=== PATIENT | female | born 1950 | race African-American/Black ===

== ENCOUNTER → 2016-10-10 | Outpatient (CLI) | payer MEDICARE, OTHER ==
[2016-10-10 11:47] LABS: ABSOLUTE BASOPHILS # (AUTO) 0.1 10^3/uL (0.0-0.2); ABSOLUTE EOSINOPHILS # (AUTO) 0.2 10^3/uL (0.0-0.6); ABSOLUTE LYMPHOCYTES (AUTO) 2.8 10^3/uL (0.5-4.7); ABSOLUTE MONOCYTES (AUTO) 0.7 10^3/uL (0.1-1.4); ABSOLUTE NEUT (AUTO) 3.4 10^3/uL (1.7-8.2); BASOPHILS % (AUTO) 0.8 % (0-2); EOSINOPHILS % (AUTO) 3.3 % (0-6); HEMATOCRIT 38.3 % (36.0-47.0); HEMOGLOBIN 12.6 g/dL (12.0-15.5); HGB HCT DIFFERENCE -0.5; LYMPHOCYTES % (AUTO) 38.9 % (13-45); MEAN CORPUSCULAR VOLUME 88 fl (80-97); MONOCYTES % (AUTO) 9.9 % (3-13); RED BLOOD COUNT 4.35 10^6/uL (3.72-5.28); RED CELL DISTRIBUTION WIDTH 15.5 % (11.5-14.0); SEGMENTED NEUTROPHILS % (AUTO) 47.1 % (42-78); WHITE BLOOD COUNT 7.2 10^3/uL (4.0-10.5)
[2016-10-10 12:21] LABS: ANION GAP 10 (5-19); BLOOD UREA NITROGEN 17 mg/dL (7-20); C-REACTIVE PROTEIN 5.7 mg/L (<10.0); CALCIUM 10.5 mg/dL (8.4-10.2); CARBON DIOXIDE 28 mmol/L (22-30); CHLORIDE 104 mmol/L (98-107); CREATININE RESULT 0.98 mg/dL (0.52-1.25); GLUCOSE 99 mg/dL (75-110); POTASSIUM 4.6 mmol/L (3.6-5.0); SODIUM 142.4 mmol/L (137-145)
[2016-10-10 12:22] LABS: ERYTHROCYTE SEDIMENTATION RATE 30 mm/hr (0-30)
== END ==
LOC: OD 10:30
PROVIDERS: ATTEND Orthopaedic Surgery
DX: T84.59XD Infection and inflammatory reaction due to other internal joint prosthesis, subsequent encounter (principal)
CPT/HCPCS: 36415; 80048; 85025; 85652; 86140

== ENCOUNTER → 2016-12-24 | Outpatient (CLI) | payer MEDICARE, OTHER ==
--- NOTE | 2016-12-24 11:41 | WOMENS IMAGING REPORT ---
EXAM DESCRIPTION: BILAT SCREENING MAMMO W/CAD COMPLETED DATE/TIME: 12/24/2016 11:24 am REASON FOR STUDY: Z12.31, ROUTINE SCREENING MAMMO Z12.31 ENCNTR SCREEN MAMMOGRAM FOR MALIGNANT NEOP LASM OF JOSE DANIEL COMPARISON: Multiple since 2011 TECHNIQUE: Standard craniocaudal and mediolateral oblique views of each breast recorded using Terranovaa l acquisition. LIMITATIONS: None. FINDINGS: No masses, calcifications or architectural distortion. No areas of suspicion. Read with the assistance of CAD. .[facility] - R2 Cenova Version 1.3 .[facility] - R2 Cenova Version 1.3 .[facility] - R2 Cenova Version 2.4 .[facility] [place] - R2 Cenova Version 2.4 .REPLACED BY [facility] - R2 Electroneurodiagnostic Technologist Version 9.2 IMPRESSION: NORMAL MAMMOGRAM. BIRADS 1. BREAST DENSITY: b. There are scattered areas of fibroglandular density. BIRAD: 1 NEGATIVE RECOMMENDATION: ROUTINE SCREENING COMMENT: The patient has been notified of the results by letter per SA requirements. Additional no tification policies are in place for contacting patient with suspicious or incomplete findings. Quality ID #[id number]: The [employer] recommends an annual screening mammogram for women aged 40 years or over. This facility utilizes a reminder system to ensure that all patients receive reminder letters, and/or direct phone calls for appointments. This includes reminders for routine scr eening mammograms, diagnostic mammograms, or other Breast Imaging Interventions when appropriate. Th is patient will be placed in the appropriate reminder system. The [employer] (ACR) has developed recommendations for screening MRI of the breast s in certain patient populations, to be used in conjunction with mammography. Breast MRI surveillanc e may be appropriate for women with more than 20% lifetime risk of developing breast cancer as deter mined by genetic testing, significant family history of the disease, or history of mantle radiation f or Hodgkins Disease. ACR Practice Guidelines 2008. TECHNICAL DOCUMENTATION: FINDING NUMBER: (1) ASSESSMENT: (1) JOB ID: [id number] [employer]- All Rights Reserved
== END ==
LOC: WI 10:50
PROVIDERS: ATTEND Internal Medicine
DX: Z12.31 Encounter for screening mammogram for malignant neoplasm of breast (principal)
CPT/HCPCS: 77067; G0202

== ENCOUNTER 2017-02-09 19:37 | Emergency (ER) | payer MEDICARE, OTHER ==
[2017-02-09] MEDS ORDERED: ONDANSETRON 4 MG TAB.RAPDIS PO ONE (20:52)
[2017-02-09] MEDS ORDERED: HYDROCODONE/ACETAMINOPHEN 5-325 MG TABLET PO ONE (20:52)
--- NOTE | 2017-02-09 20:53 | ER Document Report ---
ED General - General Chief Complaint: Blood Pressure Problem Stated Complaint: POSSIBLE BLOOD PRESSURE ISSUES Time Seen by Provider: 02/09/17 20:42 Notes: Patient is a 66-year-old female that comes in for chief complaint of an elevated blood pressure reading of 200/94. Patient states she felt nauseated and felt worn out, she still complains of feeling nauseated, she admits that she did not take her blood pressure medication this morning because of it, she did take it this afternoon and now her blood pressure is in the 140s systolic. She denies chest pain, headache, dizziness. she states her left knee hurts, however this is chronic, she is postop and follows with orthopedics, she is on chronic Levaquin for this (states she will be until this May). TRAVEL OUTSIDE OF THE [place] IN LAST 30 DAYS: No - Related Data Allergies/Adverse Reactions: aspirin [Aspirin] Allergy (Intermediate, Verified 02/09/17 20:07) Rash codeine [Codeine] Adverse Reaction (Severe, Verified 02/09/17 20:07) Severe abdominal pain Past Medical History - General Information source: Patient - Social History Smoking Status: Never Smoker Frequency of alcohol use: None Drug Abuse: None Lives with: Family Family History: None - Past Medical History Cardiac Medical History: Reports: Hx Hypercholesterolemia, Hx Hypertension Denies: Hx Atrial Fibrillation, Hx Congestive Heart Failure, Hx Coronary Artery Disease, Hx Heart Attack, Hx Peripheral Vascular Disease, Hx Pulmonary Embolism, Hx Heart Murmur Pulmonary Medical History: Reports: Hx Pneumonia - 2013 Denies: Hx Asthma, Hx Bronchitis, Hx COPD, Hx Respiratory Failure, Hx Sleep Apnea, Hx Tuberculosis Neurological Medical History: Reports: Hx Seizures - 2014. Denies: Hx Cerebrovascular Accident Endocrine Medical History: Reports: Hx Hypothyroidism. Denies: Hx Graves' Disease, Hx Hyperthyroidism Renal/ Medical History: Denies: Hx End Stage Renal Disease, Hx Kidney Stones, Hx Ovarian Cysts, Hx Peritoneal Dialysis, Hx Pelvic Inflammatory Disease Malignancy Medical History: Reports: Hx Breast Cancer - right- lumpectomy 1987. Denies: Hx Cervical Cancer, Hx Leukemia, Hx Lung Cancer, Hx Ovarian Cancer GI Medical History: Denies: Hx Crohn's Disease, Hx Gastroesophageal Reflux Disease, Hx Hiatal Hernia, Hx Irritable Bowel, Hx Liver Failure, Hx Ulcer Musculoskeltal Medical History: Reports Hx Arthritis, Denies Hx Fibromyalgia, Denies Hx Multiple Sclerosis, Denies Hx Muscular Dystrophy Psychiatric Medical History: Reports: Hx Depression Denies: Hx Bipolar Disorder, Hx Dementia, Hx Post Traumatic Stress Disorder, Hx Schizophrenia Traumatic Medical History: Reports: Hx Fractures - left arm, left leg Infectious Medical History: Denies: Hx HIV Past Surgical History: Reports: Hx Cholecystectomy, Hx Hysterectomy, Hx Orthopedic Surgery - left leg, Hx Tubal Ligation. Denies: Hx Appendectomy, Hx Bowel Surgery, Hx Section, Hx Colostomy, Hx Coronary Artery Bypass Graft, Hx Gastric Bypass Surgery, Hx Herniorrhaphy, Hx Mastectomy, Hx Pacemaker , Hx Tonsillectomy - Immunizations Hx Diphtheria, Pertussis, Tetanus Vaccination: - Unknown Hx Pneumococcal Vaccination: 06/07/13 Review of Systems - Review of Systems Constitutional: No symptoms reported EENT: No symptoms reported Cardiovascular: See HPI Respiratory: No symptoms reported Gastrointestinal: See HPI Genitourinary: No symptoms reported Female Genitourinary: No symptoms reported Musculoskeletal: No symptoms reported Skin: No symptoms reported Hematologic/Lymphatic: No symptoms reported Neurological/Psychological: See HPI Physical Exam - Vital signs Vitals: Temp Pulse Resp BP Pulse Ox 98.2 F 93 18 141/93 H 98 02/09/17 20:07 02/09/17 20:07 02/09/17 20:07 02/09/17 20:07 02/09/17 20:07 Interpretation: Normal - General General appearance: Appears well, Alert In distress: None - HEENT Head: Normocephalic, Atraumatic Eyes: Normal Conjunctiva: Normal Extraocular movements intact: Yes Eyelashes: Normal Pupils: PERRL Nasal: Normal Mouth/Lips: Normal Mucous membranes: Normal Pharynx: Normal Neck: Normal - Respiratory Respiratory status: No respiratory distress Chest status: Nontender Breath sounds: Normal Chest palpation: Normal - Cardiovascular Rhythm: Regular. No: Tachycardia Heart sounds: Normal auscultation, S1 appreciated, S2 appreciated Murmur: No - Abdominal Inspection: Normal Distension: No distension Bowel sounds: Normal Tenderness: Nontender. No: Tender, Guarding Organomegaly: No organomegaly - Back Back: Normal, Nontender. No: Tender - Extremities General upper extremity: Normal inspection, Nontender, Normal color, Normal ROM , Normal temperature General lower extremity: Other - Surgical scars on the left knee, very mild surrounding warmth greater than the right, no noted erythema, range of motion is intact, normal lower extremity exam otherwise - Neurological Neuro grossly intact: Yes Cognition: Normal Orientation: AAOx4 Aashish Coma Scale Eye Opening: Spontaneous Aashish Coma Scale Verbal: Oriented Aashish Coma Scale Motor: Obeys Commands [place] Coma Scale Total: 15 Speech: Normal Cranial nerves: Normal Cerebellar coordination: Normal Motor strength normal: LUE, RUE, LLE, RLE Additional motor exam normals: Equal manager hris Sensory: Normal - Psychological Associated symptoms: Normal affect, Normal mood - Skin Skin Temperature: Warm Skin Moisture: Dry Skin Color: Normal Course - Re-evaluation Re-evalutation: Patient is well-appearing. Normal neurological exam with no evidence of brain bleed, no reported headache, nausea has resolved from earlier. Because of reported nausea and feeling poorly workup was performed, patient given nausea medicine and a dose of pain medicine for her knee. Abdomen is soft and benign, CBC, chemistry unremarkable, patient unable to give a urine at this time but she states she is ready to leave (does not agree to wait for this to be performed). No dysuria or CVA tenderness. There is some warmth in the left knee , however no overt cellulitis, normal range of motion, patient already on Levaquin. No fever, tachycardia, or hypotension. Patient's blood pressure was significantly elevated, however she has no headache, no chest pain, and she states she is urinating earlier without any difficulty. Patient is now resuming her normal medications for this as well. Discussed follow-up with primary care for this, discussed treatment with Zofran if needed if nausea returns, also discussed return precautions if symptoms worsen including headache or chest pain. Patient and family state understanding and agreement - Vital Signs Vital signs: Temp Pulse Resp BP Pulse Ox 98.2 F 89 16 140/87 H 97 02/09/17 20:07 02/09/17 23:16 02/09/17 23:16 02/09/17 23:16 02/09/17 23:16 - Laboratory Result Diagrams: 02/09/17 22:00 02/09/17 22:00 Laboratory results interpreted by me: 02/09/17 02/09/17 22:00 22:00 RDW 14.5 H Seg Neutrophils % 34.6 L Lymphocytes % 55.0 H Est GFR ( Amer) 58 L Est GFR (Non-Af Amer) 48 L AST 13 L Discharge - Discharge Clinical Impression: Nausea, Elevated blood pressure reading Left knee pain Qualifiers: Chronicity: chronic Qualified Code(s): M25.562 - Pain in left knee Condition: Stable Disposition: HOME, SELF-CARE Additional Instructions: Evaluation and workup does not show any concerning abnormalities. If you need to, take the nausea medication, continue your antibiotic for your knee, follow-up in the next couple of days with orthopedics. Please do not miss you blood pressure medications. Return to emergency department for any concerning or worsening symptoms including chest pain, vomiting, severe headache, fever, abdominal pain, or any other concerning symptoms. Prescriptions: Ondansetron [Zofran Odt 4 mg Tablet] 1 - 2 tab PO Q4H PRN #15 tab.rapdis PRN Reason: For Nausea/Vomiting Referrals: VINCENZO ELLIS MD [Primary Care Provider] - Follow up as needed
[2017-02-09 22:13] LABS: ABSOLUTE BASOPHILS # (AUTO) 0.1 10^3/uL (0.0-0.2); ABSOLUTE EOSINOPHILS # (AUTO) 0.1 10^3/uL (0.0-0.6); ABSOLUTE MONOCYTES (AUTO) 0.6 10^3/uL (0.1-1.4); ABSOLUTE NEUT (AUTO) 2.5 10^3/uL (1.7-8.2); EOSINOPHILS % (AUTO) 1.7 % (0-6); HEMOGLOBIN 13.7 g/dL (12.0-15.5); HGB HCT DIFFERENCE 1.1; MEAN CORPUSCULAR HEMOGLOBIN 30.3 pg (27.0-33.4); MEAN CORPUSCULAR HGB CONC 34.4 g/dL (32.0-36.0); MEAN CORPUSCULAR VOLUME 88 fl (80-97); MONOCYTES % (AUTO) 7.7 % (3-13); RED BLOOD COUNT 4.53 10^6/uL (3.72-5.28); RED CELL DISTRIBUTION WIDTH 14.5 % (11.5-14.0); SEGMENTED NEUTROPHILS % (AUTO) 34.6 % (42-78); WHITE BLOOD COUNT 7.2 10^3/uL (4.0-10.5)
[2017-02-09 22:29] LABS: ALANINE AMINOTRANSFERASE 20 U/L (9-52); ALBUMIN 4.3 g/dL (3.5-5.0); ALKALINE PHOSPHATASE 62 U/L (38-126); ANION GAP 12 (5-19); ASPARTATE AMINO TRANSFERASE 13 U/L (14-36); BILIRUBIN,DIRECT 0.3 mg/dL (0.0-0.4); BILIRUBIN,TOTAL 0.6 mg/dL (0.2-1.3); BLOOD UREA NITROGEN 20 mg/dL (7-20); CALCIUM 9.9 mg/dL (8.4-10.2); CARBON DIOXIDE 24 mmol/L (22-30); CHLORIDE 103 mmol/L (98-107); CREATININE RESULT 1.14 mg/dL (0.52-1.25); GLUCOSE 101 mg/dL (75-110); POTASSIUM 3.7 mmol/L (3.6-5.0); SODIUM 139.1 mmol/L (137-145); TOTAL PROTEIN 8.1 g/dL (6.3-8.2)
[2017-02-09] MEDS ORDERED: HYDROCODONE/ACETAMINOPHEN 5-325 MG 6 TAB/DSPK PO PRN (23:03)
[2017-02-09] MEDS ORDERED: ONDANSETRON ODT 4 MG TAB (6 TAB/DSPK) PO PRN (23:03)
[2017-02-09 23:18] VITALS: BP 140/87
== END 2017-02-09 23:22 | disposition home or self-care (01) ==
LOC: ER 19:37
DX: I10 Essential (primary) hypertension (principal); R11.0 Nausea; G89.29 Other chronic pain; M25.562 Pain in left knee; E78.00 Pure hypercholesterolemia, unspecified; E03.9 Hypothyroidism, unspecified; Z85.3 Personal history of malignant neoplasm of breast; Z88.6 Allergy status to analgesic agent; Z90.49 Acquired absence of other specified parts of digestive tract; Z90.710 Acquired absence of both cervix and uterus
CPT/HCPCS: 99283; 36415; 85025; 80053; A9270 ×4; S0119

== ENCOUNTER → 2017-09-16 | Outpatient (CLI) | payer MEDICARE, OTHER ==
[2017-09-16 09:32] LABS: ABSOLUTE BASOPHILS # (AUTO) 0.1 10^3/uL (0.0-0.2); ABSOLUTE EOSINOPHILS # (AUTO) 0.1 10^3/uL (0.0-0.6); ABSOLUTE LYMPHOCYTES (AUTO) 2.7 10^3/uL (0.5-4.7); ABSOLUTE MONOCYTES (AUTO) 0.7 10^3/uL (0.1-1.4); ABSOLUTE NEUT (AUTO) 3.8 10^3/uL (1.7-8.2); BASOPHILS % (AUTO) 0.8 % (0-2); EOSINOPHILS % (AUTO) 1.8 % (0-6); HEMATOCRIT 38.6 % (36.0-47.0); HEMOGLOBIN 13.2 g/dL (12.0-15.5); LYMPHOCYTES % (AUTO) 36.9 % (13-45); MEAN CORPUSCULAR HEMOGLOBIN 30.3 pg (27.0-33.4); MEAN CORPUSCULAR HGB CONC 34.2 g/dL (32.0-36.0); MEAN CORPUSCULAR VOLUME 89 fl (80-97); PLATELET COUNT 289 10^3/uL (150-450); RED BLOOD COUNT 4.36 10^6/uL (3.72-5.28); RED CELL DISTRIBUTION WIDTH 14.3 % (11.5-14.0); SEGMENTED NEUTROPHILS % (AUTO) 51.5 % (42-78); TOTAL CELLS COUNTED % (AUTO) 100 %; WHITE BLOOD COUNT 7.4 10^3/uL (4.0-10.5)
[2017-09-16 10:07] LABS: ANION GAP 12 (5-19); BLOOD UREA NITROGEN 12 mg/dL (7-20); C-REACTIVE PROTEIN 12.8 mg/L (<10.0); CALCIUM 9.3 mg/dL (8.4-10.2); CARBON DIOXIDE 20 mmol/L (22-30); CHLORIDE 109 mmol/L (98-107); GLUCOSE 95 mg/dL (75-110); POTASSIUM 4.2 mmol/L (3.6-5.0)
[2017-09-16 10:09] LABS: ERYTHROCYTE SEDIMENTATION RATE 25 mm/hr (0-30)
== END ==
LOC: OD 08:07
PROVIDERS: ATTEND Orthopaedic Surgery
DX: M25.462 Effusion, left knee (principal)
CPT/HCPCS: 36415; 80048; 85025; 85652; 86140

== ENCOUNTER → 2017-10-03 | Outpatient (CLI) | payer MEDICARE, OTHER ==
--- NOTE | 2017-10-03 15:16 | RADIOLOGY REPORT (SQ) ---
EXAM DESCRIPTION: CT ABD/PELVIS WITH IV ORAL COMPLETED DATE/TIME: 10/03/2017 3:03 pm REASON FOR STUDY: ABN RESULTS R94.4 ABNORMAL RESULTS OF KIDNEY FUNCTION STUDIES COMPARISON: None. TECHNIQUE: CT scan of the abdomen and pelvis performed using helical scanning technique with dynamic intravenous contrast injection. No oral contrast. Images reviewed with lung, soft tissue, and bone windows. Reconstructed coronal and sagittal MPR images reviewed. Delayed images for evaluation of the urinary system also acquired. All images stored on PACS. All CT scanners at this facility use dose modulation, iterative reconstruction, and/or weight based d osing when appropriate to reduce radiation dose to as low as reasonably achievable (ALARA). [facility]: Dose Right [facility]: CareDose [facility]: Dose Right [facility]: Teradose 4D [facility]: Annexon CONTRAST TYPE AND DOSE: contrast/concentration: Isovue 370.00 mg/ml; Total Contrast Delivered: 82.0 ml; Total Saline Delivered: 65.0 ml RENAL FUNCTION: BUN 12 creatinine 0.9. RADIATION DOSE: CT Rad equipment meets quality standard of care and radiation dose reduction techniq ues were employed. CTDIvol: 5.1 - 5.9 mGy. DLP: 527 mGy-cm.. LIMITATIONS: None. FINDINGS: LOWER CHEST: No significant findings. No nodules or infiltrates. LIVER: Normal size. No masses. No dilated ducts. SPLEEN: Normal size. No focal lesions. PANCREAS: No masses. No significant calcifications. No adjacent inflammation or peripancreatic fluid collections. Pancreatic duct not dilated. GALLBLADDER: Surgically absent. ADRENAL GLANDS: No significant masses or asymmetry. RIGHT KIDNEY AND URETER: No solid masses. No significant calcifications. No hydronephrosis or hyd roureter. LEFT KIDNEY AND URETER: No solid masses. No significant calcifications. No hydronephrosis or hydr oureter. AORTA AND VESSELS: No aneurysm. No dissection. Renal arteries, SMA, celiac without stenosis. RETROPERITONEUM: No retroperitoneal adenopathy, hemorrhage or masses. BOWEL AND PERITONEAL CAVITY: A few scattered colonic diverticuli. No masses or inflammatory changes. No free fluid or peritoneal masses. APPENDIX: Not visualized. PELVIS: No mass. No free fluid. Normal bladder. ABDOMINAL WALL: No masses. No hernias. BONES: No significant or acute findings. OTHER: No other significant finding. IMPRESSION: MILD COLONIC DIVERTICULOSIS. NO CT FINDINGS OF ACUTE DIVERTICULITIS. OTHERWISE NO SIGN IFICANT OR ACUTE FINDING IN THE ABDOMEN OR PELVIS ON CT SCAN WITH IV CONTRAST. TECHNICAL DOCUMENTATION: JOB ID: [id number] Quality ID # [id number]: Final reports with documentation of one or more dose reduction techniques (e.g., Au tomated exposure control, adjustment of the mA and/or kV according to patient size, use of iterative reconstruction technique) 2010 [employer]- All Rights Reserved Reading location - IP/workstation name: [facility]
== END ==
LOC: RAD 13:32
PROVIDERS: ATTEND Internal Medicine
DX: R94.4 Abnormal results of kidney function studies (principal)
CPT/HCPCS: 74177

== ENCOUNTER 2017-10-29 07:45 | Emergency (ER) | payer MEDICARE ==
--- NOTE | 2017-10-29 09:03 | ER Document Report ---
ED General - General Chief Complaint: Foot Pain Stated Complaint: RIGHT FOOT SWELLING Time Seen by Provider: 10/29/17 08:23 Mode of Arrival: Ambulatory Information source: Patient Notes: 67-year-old female presents with complaints of right foot swelling over the past few days. Patient denies any chest pain shortness of breath difficulty breathing, patient believes she was bit by something TRAVEL OUTSIDE OF THE [place] IN LAST 30 DAYS: No - HPI Onset: Other Onset/Duration: Persistent Quality of pain: Achy Severity: Mild Associated symptoms: Leg swelling - Swelling of the right foot no calf pain Exacerbated by: Denies Relieved by: Denies Similar symptoms previously: No Recently seen / treated by doctor: No - History of left knee replacement - Related Data Allergies/Adverse Reactions: aspirin [Aspirin] Allergy (Intermediate, Verified 10/29/17 07:46) Rash codeine [Codeine] Adverse Reaction (Severe, Verified 10/29/17 07:46) Severe abdominal pain Past Medical History - Social History Smoking Status: Never Smoker Cigarette use (# per day): No Chew tobacco use (# tins/day): No Smoking Education Provided: No Family History: None Patient has suicidal ideation: No Patient has homicidal ideation: No - Past Medical History Cardiac Medical History: Reports: Hx Hypercholesterolemia, Hx Hypertension Denies: Hx Atrial Fibrillation, Hx Congestive Heart Failure, Hx Coronary Artery Disease, Hx Heart Attack, Hx Peripheral Vascular Disease, Hx Pulmonary Embolism, Hx Heart Murmur Pulmonary Medical History: Reports: Hx Pneumonia - 2013 Denies: Hx Asthma, Hx Bronchitis, Hx COPD, Hx Respiratory Failure, Hx Sleep Apnea, Hx Tuberculosis Neurological Medical History: Reports: Hx Seizures - 2014. Denies: Hx Cerebrovascular Accident Endocrine Medical History: Reports: Hx Hypothyroidism. Denies: Hx Graves' Disease, Hx Hyperthyroidism Renal/ Medical History: Denies: Hx End Stage Renal Disease, Hx Kidney Stones, Hx Ovarian Cysts, Hx Peritoneal Dialysis, Hx Pelvic Inflammatory Disease Malignancy Medical History: Reports: Hx Breast Cancer - right- lumpectomy 1987. Denies: Hx Cervical Cancer, Hx Leukemia, Hx Lung Cancer, Hx Ovarian Cancer GI Medical History: Denies: Hx Crohn's Disease, Hx Gastroesophageal Reflux Disease, Hx Hiatal Hernia, Hx Irritable Bowel, Hx Liver Failure, Hx Pancreatitis , Hx Ulcer Musculoskeltal Medical History: Reports Hx Arthritis, Denies Hx Fibromyalgia, Denies Hx Multiple Sclerosis, Denies Hx Muscular Dystrophy Psychiatric Medical History: Reports: Hx Depression Denies: Hx Bipolar Disorder, Hx Dementia, Hx Post Traumatic Stress Disorder, Hx Schizophrenia Traumatic Medical History: Reports: Hx Fractures - left arm, left leg Infectious Medical History: Denies: Hx HIV Past Surgical History: Reports: Hx Cholecystectomy, Hx Hysterectomy, Hx Orthopedic Surgery - left leg, Hx Tubal Ligation. Denies: Hx Appendectomy, Hx Bowel Surgery, Hx Section, Hx Colostomy, Hx Coronary Artery Bypass Graft, Hx Gastric Bypass Surgery, Hx Herniorrhaphy, Hx Mastectomy, Hx Pacemaker , Hx Tonsillectomy - Immunizations Hx Diphtheria, Pertussis, Tetanus Vaccination: - Unknown Hx Pneumococcal Vaccination: 06/07/13 Review of Systems - Review of Systems Notes: REVIEW OF SYSTEMS: CONSTITUTIONAL : Denies fever, chills, or sweats. Denies recent illness. EENT: Denies eye, ear, throat, or mouth pain or symptoms. Denies nasal or sinus congestion or discharge. Denies throat, tongue, or mouth swelling or difficulty swallowing. CARDIOVASCULAR: Denies chest pain. Denies palpitations or racing or irregular heart beat. Denies ankle edema. RESPIRATORY: Denies cough, cold, or chest congestion. Denies shortness of breath, difficulty breathing, or wheezing. GASTROINTESTINAL: Denies abdominal pain or distention. Denies nausea, vomiting , or diarrhea. Denies blood in vomitus, stools, or per rectum. Denies black, tarry stools. Denies constipation. GENITOURINARY: Denies difficulty urinating, painful urination, burning, frequency, blood in urine, or discharge. FEMALE GENITOURINARY: Denies vaginal bleeding, heavy or abnormal periods, irregular periods. Denies vaginal discharge or odor. MUSCULOSKELETAL: Right foot swelling SKIN: Denies rash, lesions or sores. HEMATOLOGIC : Denies easy bruising or bleeding. LYMPHATIC: Denies swollen, enlarged glands. NEUROLOGICAL: Denies confusion or altered mental status. Denies passing out or loss of consciousness. Denies dizziness or lightheadedness. Denies headache. Denies weakness or paralysis or loss of use of either side. Denies problems with gait or speech. Denies sensory loss, numbness, or tingling. Denies seizures. PSYCHIATRIC: Denies anxiety or stress. Denies depression, suicidal ideation, or homicidal ideation. ALL OTHER SYSTEMS REVIEWED AND NEGATIVE. PHYSICAL EXAMINATION: GENERAL: Well-appearing, well-nourished and in no acute distress. HEAD: Atraumatic, normocephalic. EYES: Pupils equal round and reactive to light, extraocular movements intact, conjunctiva are normal. ENT: Nares patent, oropharynx clear without exudates. Moist mucous membranes. NECK: Normal range of motion, supple without lymphadenopathy LUNGS: Breath sounds clear to auscultation bilaterally and equal. No wheezes rales or rhonchi. HEART: Regular rate and rhythm without murmurs ABDOMEN: Soft, nontender, nondistended abdomen. No guarding, no rebound. No masses appreciated. Female : deferred Musculoskeletal: +1 pitting edema right foot NEUROLOGICAL: Cranial nerves grossly intact. Normal speech, normal gait. Normal sensory, motor exams PSYCH: Normal mood, normal affect. SKIN:blister between the 3-4th digits with drainage, erythema to midfoot Dictation was performed using [employer] voice recognition software Physical Exam - Vital signs Vitals: Temp Pulse Resp BP Pulse Ox 98 F 94 16 148/93 H 98 10/29/17 07:52 10/29/17 07:52 10/29/17 07:52 10/29/17 07:52 10/29/17 07:52 Course - Re-evaluation Re-evalutation: 10/29/17 09:03 Doppler has been ordered to rule out a DVT, overall she looks well I do not believe that this would be DVT related patient does have obvious blister with cellulitic component I believe it is infectious in nature 10/29/17 09:34 10/29/17 16:27 X-ray noted no osteomyelitis, patient overall looks well, she was given pain control, white count was not noted to be elevated, patient will be discharged home on antibiotics, no abscess is noted nothing actively draining in size the patient has been given very strict return precautions she states she understands and will return if there are any other concerns After performing a Medical Screening Examination, I estimate there is LOW risk for OPEN FRACTURE, COMPARTMENT SYNDROME, TENDON RUPTURE, ACUTE NEUROVASCULAR INJURY, or RETAINED FOREIGN BODY, thus I consider the discharge disposition reasonable. Also, there is no evidence or peritonitis, sepsis, or toxicity. I have reevaluated this patient multiple times and no significant life threatening changes are noted. The patient and I have discussed the diagnosis and risks, and we agree with discharging home with close follow-up with the understanding that symptoms and presentations can change. We also discussed returning to the Emergency Department immediately if new or worsening symptoms occur. We have discussed the symptoms which are most concerning (e.g., changing or worsening pain, fever, numbness, weakness, cool or painful digits) that necessitate immediate return. - Vital Signs Vital signs: Temp Pulse Resp BP Pulse Ox 98.6 F 89 18 138/88 H 100 10/29/17 12:22 10/29/17 12:22 10/29/17 12:22 10/29/17 12:22 10/29/17 12:22 - Laboratory Result Diagrams: 10/29/17 10:23 10/29/17 10:23 Laboratory results interpreted by me: 10/29/17 10:23 Est GFR (Non-Af Amer) 54 L Glucose 111 H - Diagnostic Test Radiology reviewed: Image reviewed - Review foot note no osteomyelitis, ultrasound venous Doppler of the extremity noted no DVT, Reports reviewed Discharge - Discharge Clinical Impression: Cellulitis of foot Condition: Stable Disposition: HOME, SELF-CARE Instructions: Cellulitis ([facility]) Additional Instructions: You must return immediately if there are any other concerns Prescriptions: Cephalexin Monohydrate [Keflex 500 mg Capsule] 500 mg PO QID #40 capsule Oxycodone HCl/Acetaminophen [Percocet 5-325 mg Tablet] 1 - 2 tab PO Q4H PRN #15 tablet PRN Reason: Sulfamethoxazole/Trimethoprim [Bactrim 400-80 mg Tablet] 2 each PO BID #40 tablet Referrals: VINCENZO ELLIS MD [Primary Care Provider] - Follow up as needed
[2017-10-29] MEDS ORDERED: VANCOMYCIN HCL INJ 1000 MG VIAL IV ONE (09:29)
--- NOTE | 2017-10-29 10:10 | RADIOLOGY REPORT (SQ) ---
EXAM DESCRIPTION: FOOT RIGHT COMPLETE COMPLETED DATE/TIME: 10/29/2017 9:39 am REASON FOR STUDY: wound between 3rd 4th digits COMPARISON: None. NUMBER OF VIEWS: Three views. TECHNIQUE: AP, lateral and oblique radiographic images acquired of the right foot. LIMITATIONS: None. FINDINGS: MINERALIZATION: Some demineralization. BONES: No acute fracture or dislocation. No worrisome bone lesions. JOINTS: Mild arthritic change. SOFT TISSUES: No metallic foreign bodies or soft tissue air. Soft tissue swelling noted. OTHER: No other significant finding. IMPRESSION: Nothing acute. TECHNICAL DOCUMENTATION: JOB ID: [id number] [employer]- All Rights Reserved Reading location - IP/workstation name: [facility]
[2017-10-29] MEDS ORDERED: OXYCODONE-ACETAMINOPHEN 5-325 MG TABLET PO ONE (10:49)
[2017-10-29 10:51] LABS: ABSOLUTE BASOPHILS # (AUTO) 0.1 10^3/uL (0.0-0.2); ABSOLUTE EOSINOPHILS # (AUTO) 0.4 10^3/uL (0.0-0.6); ABSOLUTE LYMPHOCYTES (AUTO) 2.7 10^3/uL (0.5-4.7); ABSOLUTE MONOCYTES (AUTO) 0.8 10^3/uL (0.1-1.4); ABSOLUTE NEUT (AUTO) 4.5 10^3/uL (1.7-8.2); BASOPHILS % (AUTO) 0.8 % (0-2); EOSINOPHILS % (AUTO) 4.7 % (0-6); HEMATOCRIT 37.1 % (36.0-47.0); HEMOGLOBIN 12.4 g/dL (12.0-15.5); MEAN CORPUSCULAR HEMOGLOBIN 29.8 pg (27.0-33.4); MEAN CORPUSCULAR HGB CONC 33.4 g/dL (32.0-36.0); MEAN CORPUSCULAR VOLUME 89 fl (80-97); MONOCYTES % (AUTO) 9.6 % (3-13); PLATELET COUNT 308 10^3/uL (150-450); RED BLOOD COUNT 4.16 10^6/uL (3.72-5.28); RED CELL DISTRIBUTION WIDTH 13.8 % (11.5-14.0); SEGMENTED NEUTROPHILS % (AUTO) 52.9 % (42-78); TOTAL CELLS COUNTED % (AUTO) 100 %; WHITE BLOOD COUNT 8.6 10^3/uL (4.0-10.5)
[2017-10-29 10:55] LABS: ALANINE AMINOTRANSFERASE 17 U/L (9-52); ALKALINE PHOSPHATASE 64 U/L (38-126); ANION GAP 11 (5-19); ASPARTATE AMINO TRANSFERASE 14 U/L (14-36); BILIRUBIN,DIRECT 0.2 mg/dL (0.0-0.4); BILIRUBIN,TOTAL 0.5 mg/dL (0.2-1.3); BLOOD UREA NITROGEN 20 mg/dL (7-20); CALCIUM 9.6 mg/dL (8.4-10.2); CARBON DIOXIDE 25 mmol/L (22-30); CHLORIDE 107 mmol/L (98-107); GLUCOSE 111 mg/dL (75-110); POTASSIUM 4.5 mmol/L (3.6-5.0); SODIUM 142.5 mmol/L (137-145); TOTAL PROTEIN 7.4 g/dL (6.3-8.2)
--- NOTE | 2017-10-29 12:10 | XCELERA REPORT ---
[address] [address] Lower Extremity Venous Evaluation Name: GALILEO TENORIO Age: 67 yrs Gender: Female : 1950 Patient Status: Emergency Patient Location: ER Study Date: 10/29/2017 08:46 AM Procedure: Color flow and duplex imaging of the veins of the right lower extremity as well as the left Common Femoral vein. Reason For Study: right leg swelling Ordering Physician: NAGELES FUENTES Performed By: Gio Lemos Right Sided Venous Evaluation A mass, with the typical appearance of a lymph node, 3.34 cms, in length, is noted, adjacent to the Femoral vessels. Normal vessel filling wall to wall, compression and augmentation as well as Colour flow down to the infrageniculate veins. Left Sided Venous Evaluation The left common femoral vein is fully compressible. Spontaneous and phasic flow is present in the left common femoral vein. Interpretation Summary No duplex evidence of DVT or obstruction in the right lower extremity nor in the left Common Femoral vein. A mass, with the typical appearance of a lymph node, 3.34 cms, in length, is noted, adjacent to the right Femoral vessels. : ANGELES FUENTES > Wu Traylor
[2017-10-29 12:23] VITALS: BP 138/88
== END 2017-10-29 12:23 | disposition home or self-care (01) ==
LOC: ER 07:45
DX: S90.829A Blister (nonthermal), unspecified foot, initial encounter (principal); L03.119 Cellulitis of unspecified part of limb; X58.XXXA Exposure to other specified factors, initial encounter; Z88.6 Allergy status to analgesic agent; Z88.5 Allergy status to narcotic agent; I10 Essential (primary) hypertension; Z85.3 Personal history of malignant neoplasm of breast
CPT/HCPCS: 99284; 96365; 36415; 85025; 80053; 93971 ×2; 73630; A9270; J3370

== ENCOUNTER 2017-10-30 17:04 | Inpatient (IN) | payer MEDICARE ==
[2017-10-30] MEDS ORDERED: DEXTROSE 5%-LACTATED RINGERS 1,000 ML IV PRN (17:50)
[2017-10-30] MEDS ORDERED: VANCOMYCIN HCL 1,000 MG in DEXTROSE 5%-WATER 250 ML IV ONE (18:00)
[2017-10-30 18:15] LABS: ABSOLUTE BASOPHILS # (AUTO) 0.1 10^3/uL (0.0-0.2); ABSOLUTE EOSINOPHILS # (AUTO) 0.4 10^3/uL (0.0-0.6); ABSOLUTE LYMPHOCYTES (AUTO) 2.8 10^3/uL (0.5-4.7); ABSOLUTE MONOCYTES (AUTO) 0.7 10^3/uL (0.1-1.4); BASOPHILS % (AUTO) 1.4 % (0-2); EOSINOPHILS % (AUTO) 4.6 % (0-6); HEMATOCRIT 36.7 % (36.0-47.0); HEMOGLOBIN 12.6 g/dL (12.0-15.5); LYMPHOCYTES % (AUTO) 30.8 % (13-45); MEAN CORPUSCULAR HEMOGLOBIN 30.6 pg (27.0-33.4); MEAN CORPUSCULAR HGB CONC 34.2 g/dL (32.0-36.0); MEAN CORPUSCULAR VOLUME 89 fl (80-97); MONOCYTES % (AUTO) 7.2 % (3-13); PLATELET COUNT 309 10^3/uL (150-450); RED CELL DISTRIBUTION WIDTH 13.6 % (11.5-14.0); TOTAL CELLS COUNTED % (AUTO) 100 %
[2017-10-30 18:37] LABS: ANION GAP 11 (5-19); BLOOD UREA NITROGEN 16 mg/dL (7-20); C-REACTIVE PROTEIN 28.2 mg/L (<10.0); CALCIUM 9.9 mg/dL (8.4-10.2); CARBON DIOXIDE 26 mmol/L (22-30); CHLORIDE 104 mmol/L (98-107); GLUCOSE 94 mg/dL (75-110); POTASSIUM 4.4 mmol/L (3.6-5.0); SODIUM 140.6 mmol/L (137-145)
[2017-10-30] MEDS ORDERED: BUPIVACAINE HCL 0.5 % INJ/PF 30 ML SDV ONE (18:39)
[2017-10-30 18:51] LABS: ERYTHROCYTE SEDIMENTATION RATE 60 mm/hr (0-30)
[2017-10-30] MEDS ORDERED: AMPICILLIN SODIUM/SULBACTAM NA 3 GM in NORMAL SALINE 100 ML IV ONE (19:00)
[2017-10-30] MEDS ORDERED: PROPOFOL INJ 200 MG/20 ML VIAL IV ONE (19:08)
[2017-10-30] MEDS ORDERED: MIDAZOLAM 2 MG/2 ML INJ ONE (19:08)
[2017-10-30] MEDS ORDERED: KETAMINE HCL INJ 500 MG/10 ML VIAL ONE (19:08)
[2017-10-30] MEDS ORDERED: FENTANYL CITRATE INJ/PF 100 MCG/2 ML AMPUL ONE ×2 (19:08→20:33)
--- NOTE | 2017-10-30 19:22 | PDOC CONSULTATION ---
History of Present Illness Admission Date/PCP: 10/30/17 17:04 VINCENZO ELLIS MD Patient complains of: right foot pains History of Present Illness: GALILEO TENORIO is a 67 year old female started c/o right foot pains 5 days ago followed by redness and swelling right foot. Also noted small blister at the right 2nd toe base. Asso fever. Past Medical History Cardiac Medical History: Reports: Hyperlipidema, Hypertension Denies: Atrial Fibrillation, Congestive Heart Failure, Coronary Artery Disease, Myocardial Infarction, Peripheral Vascular Disease, Pulmonary Embolism , Heart Murmur Pulmonary Medical History: Reports: Pneumonia - 2014 Denies: Asthma, Bronchitis, Chronic Obstructive Pulmonary Disease (COPD), Respiratory Failure, Sleep Apnea, Tuberculosis Neurological Medical History: Reports: Seizures - 2014 Endocrine Medical History: Reports: Hypothyroidism Denies: Hyperthyroidism Renal/ Medical History: Denies: End Stage Renal Disease Malignancy Medical History: Reports: Breast Cancer - right- lumpectomy 1987 Denies: Cervical Cancer, Leukemia, Lung Cancer, Ovarian Cancer GI Medical History: Denies: Crohn's Disease, Gastroesophageal Reflux Disease, Hiatal Hernia Musculoskeltal Medical History: Reports: Arthritis Denies: Fibromyalgia Psychiatric Medical History: Reports: Depression Denies: Bipolar Disorder, Dementia, Post Traumatic Stress Disorder Hematology: Reports: Anemia Denies: Hemophilia, Sickle Cell Disease Infectious Medical History: Denies: HIV Past Surgical History Past Surgical History: Reports: Cholecystectomy, Hysterectomy, Orthopedic Surgery - left leg, Tubal Ligation Denies: Amputation, Appendectomy, Section, Colostomy, Coronary Artery Bypass Graft, Gastric Bypass Surgery, Herniorrhaphy, Mastectomy, Pacemaker, Tonsillectomy Social History Smoking Status: Current Every Day Smoker Frequency of Alcohol Use: None Hx Recreational Drug Use: No Drugs: None Hx Prescription Drug Abuse: No Family History Family History: None Parental Family History Reviewed: Yes - no diabetes Mellitus Children Family History Reviewed: No Sibling(s) Family History Reviewed.: No Medication/Allergy Home Medications: Amlodipine Besylate [Norvasc 10 mg Tablet] 10 mg PO DAILY 10/30/17 Chlorpheniramine Maleate [Chlor-Trimeton 4 mg Tablet] 4 mg PO Q6 10/30/17 Citalopram Hydrobromide [Celexa 10 mg Tablet] 10 mg PO DAILY 10/30/17 Hydralazine HCl [Apresoline 25 mg Tablet] 25 mg PO BID 10/30/17 Hydrochlorothiazide [Hydrodiuril 25 mg Tablet] 25 mg PO DAILY 10/30/17 Ibuprofen [Motrin 800 mg Tablet] 800 mg PO TIDP PRN 10/30/17 Levothyroxine Sodium [Synthroid 0.05 mg Tablet] 50 mcg PO Q6AM 10/30/17 Metoprolol Tartrate [Lopressor 100 mg Tablet] 100 mg PO Q12 10/30/17 Montelukast Sodium [Singulair 10 mg Tablet] 10 mg PO QPM 10/30/17 Valsartan [Diovan] 320 mg PO DAILY 10/30/17 Allergies/Adverse Reactions: aspirin [Aspirin] Allergy (Intermediate, Verified 10/29/17 07:46) Rash codeine [Codeine] Adverse Reaction (Severe, Verified 10/29/17 07:46) Severe abdominal pain Review of Systems Constitutional: PRESENT: fever(s) Eyes: PRESENT: other - no visual/hearing changes Cardiovascular: PRESENT: other - no chest pains/cough Gastrointestinal: PRESENT: other - no N/V Genitourinary: PRESENT: other - no dysuria Integumentary: PRESENT: erythema, other - foot Neurological: PRESENT: other - no seizures Physical Exam Vital Signs: Intake & Output 10/29/17 10/30/17 10/31/17 06:59 06:59 06:59 Intake Total 0 Balance 0 Weight 75.75 kg General appearance: PRESENT: no acute distress Head exam: PRESENT: atraumatic Eye exam: PRESENT: conjunctiva pink Mouth exam: PRESENT: moist Neck exam: PRESENT: full ROM Respiratory exam: PRESENT: clear to auscultation theo Cardiovascular exam: PRESENT: RRR Pulses: PRESENT: normal radial pulses Vascular exam: PRESENT: normal capillary refill GI/Abdominal exam: PRESENT: soft Rectal exam: PRESENT: deferred Extremities exam: PRESENT: tenderness - reddish swelling right foot Musculoskeletal exam: PRESENT: ambulatory Neurological exam: PRESENT: alert, oriented to person, oriented to place, oriented to time, oriented to situation Psychiatric exam: PRESENT: appropriate affect Skin exam: PRESENT: erythema, vesicles - right 2nd toe Results Laboratory Results: 10/30/17 17:54 10/30/17 17:54 10/30/17 10/30/17 10/30/17 17:54 17:54 17:54 WBC 9.0 Cancelled RBC 4.10 Cancelled Hgb 12.6 Cancelled Hct 36.7 Cancelled MCV 89 Cancelled MCH 30.6 Cancelled MCHC 34.2 Cancelled RDW 13.6 Cancelled Plt Count 309 Cancelled Seg Neutrophils % 56.0 Cancelled Lymphocytes % 30.8 Cancelled Monocytes % 7.2 Cancelled Eosinophils % 4.6 Cancelled Basophils % 1.4 Cancelled Absolute Neutrophils 5.0 Cancelled Absolute Lymphocytes 2.8 Cancelled Absolute Monocytes 0.7 Cancelled Absolute Eosinophils 0.4 Cancelled Absolute Basophils 0.1 Cancelled Sodium 140.6 Potassium 4.4 Chloride 104 Carbon Dioxide 26 Anion Gap 11 BUN 16 Creatinine 1.17 Est GFR ( Amer) 56 L Est GFR (Non-Af Amer) 46 L Glucose 94 Calcium 9.9 C-Reactive Protein 28.2 H Assessment & Plan - Diagnosis (1) Abscess of right foot Is this a current diagnosis for this admission?: Yes - Time Time Spent: 30 to 50 Minutes - Plan Summary Plan Summary: IV antibiotics For I&D right foot abscess
[2017-10-30] MEDS ORDERED: ONDANSETRON HCL INJ/PF 4 MG/2 ML SDV IV PRN (19:51)
[2017-10-30] MEDS ORDERED: FENTANYL CITRATE INJ/PF 100 MCG/2 ML AMPUL IV PRN ×3 (19:51)
[2017-10-30] MEDS ORDERED: DIPHENHYDRAMINE HCL 50 MG/ML VIAL IV PRN (19:51)
[2017-10-30] MEDS ORDERED: PROMETHAZINE HCL INJ 25 MG/1 ML VIAL IV PRN (19:51)
--- NOTE | 2017-10-30 20:05 | EKG REPORT ---
SEVERITY:- NORMAL ECG - SINUS RHYTHM : Confirmed by: Sean France MD 30-Oct-2017 20:05:15
[2017-10-30] MEDS ORDERED: NORMAL SALINE 1000 ML 1,000 ML IV PRN (20:30)
--- NOTE | 2017-10-30 20:54 | OPERATIVE REPORT E ---
Operative Report NAME: GALILEO TENORIO : 1950 AGE: 67Y DATE OF SURGERY: 10/30/2017 ROOM: 431 PREOPERATIVE DIAGNOSIS: Abscess of the right foot. POSTOPERATIVE DIAGNOSIS: Abscess of the right foot. OPERATION: Incision and drainage of abscess of the right foot and debridement of the blister on the web of the second and third toes. SURGEON: DEYSI PARTIDA M.D. ANESTHESIA: Local MAC INDICATION FOR PROCEDURE: This is a 67-year-old female, nondiabetic, noted swelling of the right foot with some blister formation on the right second and third toe web. She had an x-ray of the foot yesterday which showed no definite abscess formation. However, patient noted to be erythematous and swelling of the right foot and the right ankle area with some fluctuation. DESCRIPTION OF PROCEDURE: After adequate IV sedation, patient was placed in supine position and the right foot and lower leg prepped and draped in the usual sterile fashion. Appropriate tomorrow was then called. Next, local anesthesia infiltrated on the dorsum of the foot between the second and third toes. A small incision made and incision deepened with the use of a hemostat with some mostly serous fluid. Cultures were then obtained. Next, the fluctuation over the right lat malleolar area was then injected with Xylocaine and a small incision made and the incision deepened with the use of a hemostat, again with a gush of primarily serious fluid. Cultures again were obtained. Both incision sites were then packed with 1/4 inch Iodoform gauze. Next, the blister formation within the third and fourth toes were then debrided. Skin completely through and through was debrided. Cultures of fluid were also obtained. The debrided area roughly measured about 2 x 3 cm. A Xeroform gauze was placed over the wound and sterile 4x4s placed over the incision sites and debrided area on the third and fourth toe web. The foot was then wrapped over ABD pad with a Bee and again with an Jon bandage. The patient tolerated the procedure well. Needle, instrument, sponge count were all correct. ESTIMATED BLOOD LOSS: About 10 mL. DICTATING PHYSICIAN: DEYSI PARTIDA M.D. [id number] PHY#: [id number] 2021 ID: [id number] JOB#: [id number] ACCT: [id number] cc:DEYSI PARTIDA M.D. > PIERO
--- NOTE | 2017-10-30 21:15 | PDOC H&P ---
History of Present Illness Admission Date/PCP: 10/30/17 17:04 VINCENZO ELLIS MD History of Present Illness: GALILEO TENORIO is a 67 year old female, She came to the office this afternoon for evaluation of swelling, redness ,pussy discharge from the right foot, she was in the emergency room yesterday she was evaluated and she was diagnosed with cellulitis of the right foot, she was prescribed p.o. antibiotic. She came to the office today because she noticed progression of the swelling, in the office on evaluation the findings was consistent with abscess of the right foot, she was admitted directly from the office to the hospital for surgical debridement and incision and drainage of the abscess, she was seen by the surgeon , she was taken to the OR for I&D and debridement of the abscess Past Medical History Cardiac Medical History: Reports: Hyperlipidema, Hypertension Denies: Atrial Fibrillation, Congestive Heart Failure, Coronary Artery Disease, Myocardial Infarction, Peripheral Vascular Disease, Pulmonary Embolism , Heart Murmur Pulmonary Medical History: Reports: Pneumonia - 2013 Denies: Asthma, Bronchitis, Chronic Obstructive Pulmonary Disease (COPD), Respiratory Failure, Sleep Apnea, Tuberculosis Neurological Medical History: Reports: Seizures - 2015 Endocrine Medical History: Reports: Hypothyroidism Denies: Hyperthyroidism Renal/ Medical History: Denies: End Stage Renal Disease Malignancy Medical History: Reports: Breast Cancer - right- lumpectomy 1987 Denies: Cervical Cancer, Leukemia, Lung Cancer, Ovarian Cancer GI Medical History: Denies: Crohn's Disease, Gastroesophageal Reflux Disease, Hiatal Hernia Musculoskeltal Medical History: Reports: Arthritis Denies: Fibromyalgia Psychiatric Medical History: Reports: Depression Denies: Bipolar Disorder, Dementia, Post Traumatic Stress Disorder Hematology: Reports: Anemia Denies: Hemophilia, Sickle Cell Disease Infectious Medical History: Denies: HIV Past Surgical History Past Surgical History: Reports: Cholecystectomy, Hysterectomy, Orthopedic Surgery - left leg, Tubal Ligation Social History Smoking Status: Current Every Day Smoker Frequency of Alcohol Use: None Hx Recreational Drug Use: No Drugs: None Hx Prescription Drug Abuse: No - Advance Directive Resuscitation Status: Full Code Family History Family History: None Parental Family History Reviewed: Yes Children Family History Reviewed: Yes Sibling(s) Family History Reviewed.: Yes Medication/Allergy Home Medications: Amlodipine Besylate [Norvasc 10 mg Tablet] 10 mg PO DAILY 10/30/17 Chlorpheniramine Maleate [Chlor-Trimeton 4 mg Tablet] 4 mg PO Q6 10/30/17 Citalopram Hydrobromide [Celexa 10 mg Tablet] 10 mg PO DAILY 10/30/17 Hydralazine HCl [Apresoline 25 mg Tablet] 25 mg PO BID 10/30/17 Hydrochlorothiazide [Hydrodiuril 25 mg Tablet] 25 mg PO DAILY 10/30/17 Ibuprofen [Motrin 800 mg Tablet] 800 mg PO TIDP PRN 10/30/17 Levothyroxine Sodium [Synthroid 0.05 mg Tablet] 50 mcg PO Q6AM 10/30/17 Metoprolol Tartrate [Lopressor 100 mg Tablet] 100 mg PO Q12 10/30/17 Montelukast Sodium [Singulair 10 mg Tablet] 10 mg PO QPM 10/30/17 Valsartan [Diovan] 320 mg PO DAILY 10/30/17 Allergies/Adverse Reactions: aspirin [Aspirin] Allergy (Intermediate, Verified 10/29/17 07:46) Rash codeine [Codeine] Adverse Reaction (Severe, Verified 10/29/17 07:46) Severe abdominal pain Review of Systems Constitutional: ABSENT: chills, fever(s), headache(s), weight gain, weight loss Eyes: ABSENT: visual disturbances Ears: ABSENT: hearing changes Cardiovascular: ABSENT: chest pain, dyspnea on exertion, edema, orthropnea, palpitations Respiratory: ABSENT: cough, hemoptysis Gastrointestinal: ABSENT: abdominal pain, constipation, diarrhea, hematemesis, hematochezia, nausea, vomiting Genitourinary: ABSENT: dysuria, hematuria Musculoskeletal: PRESENT: joint swelling Integumentary: ABSENT: rash, wounds Neurological: ABSENT: abnormal gait, abnormal speech, confusion, dizziness, focal weakness, syncope Psychiatric: ABSENT: anxiety, depression, homidical ideation, suicidal ideation Endocrine: ABSENT: cold intolerance, heat intolerance, menstrual abnormalities, polydipsia, polyuria Hematologic/Lymphatic: ABSENT: easy bleeding, easy bruising, lymphadenopathy Physical Exam Vital Signs: Temp Pulse Resp BP Pulse Ox 98.2 F 80 16 159/83 H 100 10/30/17 20:13 10/30/17 20:43 10/30/17 20:43 10/30/17 20:43 10/30/17 20:43 Intake & Output 10/29/17 10/30/17 10/31/17 06:59 06:59 06:59 Intake Total 100 Output Total 255 Balance -155 Weight 75.75 kg General appearance: PRESENT: no acute distress, well-developed, well-nourished Head exam: PRESENT: atraumatic, normocephalic Eye exam: PRESENT: conjunctiva pink, EOMI, PERRLA Ear exam: PRESENT: normal external ear exam Mouth exam: PRESENT: moist, tongue midline Neck exam: PRESENT: full ROM. ABSENT: carotid bruit, JVD, lymphadenopathy, thyromegaly Respiratory exam: PRESENT: clear to auscultation theo Cardiovascular exam: PRESENT: RRR, +S1, +S2 Pulses: PRESENT: normal dorsalis pedis pul, +2 pedal pulses bilateral Vascular exam: PRESENT: normal capillary refill GI/Abdominal exam: PRESENT: normal bowel sounds, soft Rectal exam: PRESENT: deferred Extremities exam: PRESENT: pedal edema, other - Swelling, redness of the right foot consistent with cellulitis/abscess Neurological exam: PRESENT: alert, awake, oriented to person, oriented to place , oriented to time, oriented to situation, CN II-XII grossly intact Psychiatric exam: PRESENT: appropriate affect, normal mood Skin exam: PRESENT: dry, intact, warm. ABSENT: cyanosis, rash Results Laboratory Results: 10/30/17 17:54 10/30/17 17:54 10/30/17 10/30/17 10/30/17 17:54 17:54 17:54 WBC 9.0 Cancelled RBC 4.10 Cancelled Hgb 12.6 Cancelled Hct 36.7 Cancelled MCV 89 Cancelled MCH 30.6 Cancelled MCHC 34.2 Cancelled RDW 13.6 Cancelled Plt Count 309 Cancelled Seg Neutrophils % 56.0 Cancelled Lymphocytes % 30.8 Cancelled Monocytes % 7.2 Cancelled Eosinophils % 4.6 Cancelled Basophils % 1.4 Cancelled Absolute Neutrophils 5.0 Cancelled Absolute Lymphocytes 2.8 Cancelled Absolute Monocytes 0.7 Cancelled Absolute Eosinophils 0.4 Cancelled Absolute Basophils 0.1 Cancelled Sodium 140.6 Potassium 4.4 Chloride 104 Carbon Dioxide 26 Anion Gap 11 BUN 16 Creatinine 1.17 Est GFR ( Amer) 56 L Est GFR (Non-Af Amer) 46 L Glucose 94 Calcium 9.9 C-Reactive Protein 28.2 H Assessment & Plan - Diagnosis (1) Abscess of right foot Is this a current diagnosis for this admission?: Yes Plan: Start IV vancomycin and Zosyn (2) Essential (primary) hypertension Is this a current diagnosis for this admission?: Yes
[2017-10-30] MEDS ORDERED: OXYCODONE-ACETAMINOPHEN 5-325 MG TABLET ONE (21:33)
[2017-10-30] MEDS: HYDRALAZINE HCL 25 MG TABLET PO SCH (21:38)
[2017-10-30] MEDS: METOPROLOL TARTRATE 100 MG TABLET PO SCH (21:38)
[2017-10-30] MEDS: OXYCODONE-ACETAMINOPHEN 5-325 MG TABLET PO PRN (21:39)
[2017-10-30] MEDS: PIPERACILLIN SODIUM/TAZOBACTAM 3.375 GM in NORMAL SALINE 100 ML IV SCH (21:40)
[2017-10-31] MEDS: CHLORPHENIRAMINE MALEATE 4 MG TABLET PO SCH ×4 (00:21→17:30)
[2017-10-31] MEDS: OXYCODONE-ACETAMINOPHEN 5-325 MG TABLET PO PRN ×3 (02:14→21:27)
[2017-10-31] MEDS ORDERED: AMPICILLIN SODIUM/SULBACTAM NA 3 GM in NORMAL SALINE 100 ML IV SCH (03:00)
[2017-10-31 05:19] LABS: ABSOLUTE BASOPHILS # (AUTO) 0.1 10^3/uL (0.0-0.2); ABSOLUTE EOSINOPHILS # (AUTO) 0.4 10^3/uL (0.0-0.6); ABSOLUTE LYMPHOCYTES (AUTO) 2.9 10^3/uL (0.5-4.7); ABSOLUTE MONOCYTES (AUTO) 0.7 10^3/uL (0.1-1.4); ABSOLUTE NEUT (AUTO) 3.3 10^3/uL (1.7-8.2); BASOPHILS % (AUTO) 0.8 % (0-2); EOSINOPHILS % (AUTO) 5.4 % (0-6); HEMATOCRIT 33.3 % (36.0-47.0); HEMOGLOBIN 11.2 g/dL (12.0-15.5); LYMPHOCYTES % (AUTO) 39.6 % (13-45); MEAN CORPUSCULAR HEMOGLOBIN 29.9 pg (27.0-33.4); MEAN CORPUSCULAR HGB CONC 33.8 g/dL (32.0-36.0); MEAN CORPUSCULAR VOLUME 89 fl (80-97); MONOCYTES % (AUTO) 9.4 % (3-13); PLATELET COUNT 277 10^3/uL (150-450); RED BLOOD COUNT 3.75 10^6/uL (3.72-5.28); RED CELL DISTRIBUTION WIDTH 13.6 % (11.5-14.0); SEGMENTED NEUTROPHILS % (AUTO) 44.8 % (42-78); TOTAL CELLS COUNTED % (AUTO) 100 %; WHITE BLOOD COUNT 7.3 10^3/uL (4.0-10.5)
[2017-10-31 05:32] LABS: ANION GAP 8 (5-19); BLOOD UREA NITROGEN 16 mg/dL (7-20); CALCIUM 8.9 mg/dL (8.4-10.2); CARBON DIOXIDE 26 mmol/L (22-30); CHLORIDE 108 mmol/L (98-107); GLUCOSE 105 mg/dL (75-110); POTASSIUM 4.6 mmol/L (3.6-5.0); SODIUM 141.7 mmol/L (137-145)
[2017-10-31] MEDS: PIPERACILLIN SODIUM/TAZOBACTAM 3.375 GM in NORMAL SALINE 100 ML IV SCH ×3 (06:36→21:27)
[2017-10-31] MEDS: LEVOTHYROXINE SODIUM 0.05 MG TABLET PO SCH (06:37)
[2017-10-31] MEDS: ENOXAPARIN SODIUM INJ 40 MG/0.4 ML DISP.SYRIN SUBCUT SCH (06:38)
--- NOTE | 2017-10-31 08:51 | PDOC PROGRESS REPORT ---
Subjective Progress Note for:: 10/31/17 Subjective:: c/o right foot pain during dressing change Reason For Visit: ABSCESS RIGHT FOOT Physical Exam Vital Signs: Temp Pulse Resp BP Pulse Ox 97.9 F 68 16 141/67 H 98 10/31/17 02:15 10/31/17 02:15 10/31/17 02:15 10/31/17 02:15 10/31/17 02:15 Intake & Output 10/30/17 10/31/17 11/01/17 06:59 06:59 06:59 Intake Total 575 Output Total 255 Balance 320 Weight 75.75 kg Musculoskeletal exam: PRESENT: other - Right foot: diffuse left malleolar and dorsal swellng, soft, slightly tender, surgical incisions (dorsal and lateral malleolar) clean, no odor, no drainage, webspace (3rd-4th toes) wound clean, normal sensation and ROM of ankle and toes Results Laboratory Results: 10/31/17 04:34 10/31/17 04:34 10/30/17 10/30/17 10/30/17 17:54 17:54 17:54 WBC 9.0 Cancelled RBC 4.10 Cancelled Hgb 12.6 Cancelled Hct 36.7 Cancelled MCV 89 Cancelled MCH 30.6 Cancelled MCHC 34.2 Cancelled RDW 13.6 Cancelled Plt Count 309 Cancelled Seg Neutrophils % 56.0 Cancelled Lymphocytes % 30.8 Cancelled Monocytes % 7.2 Cancelled Eosinophils % 4.6 Cancelled Basophils % 1.4 Cancelled Absolute Neutrophils 5.0 Cancelled Absolute Lymphocytes 2.8 Cancelled Absolute Monocytes 0.7 Cancelled Absolute Eosinophils 0.4 Cancelled Absolute Basophils 0.1 Cancelled Sodium 140.6 Potassium 4.4 Chloride 104 Carbon Dioxide 26 Anion Gap 11 BUN 16 Creatinine 1.17 Est GFR ( Amer) 56 L Est GFR (Non-Af Amer) 46 L Glucose 94 Calcium 9.9 C-Reactive Protein 28.2 H 10/31/17 10/31/17 04:34 04:34 WBC 7.3 RBC 3.75 Hgb 11.2 L Hct 33.3 L MCV 89 MCH 29.9 MCHC 33.8 RDW 13.6 Plt Count 277 Seg Neutrophils % 44.8 Lymphocytes % 39.6 Monocytes % 9.4 Eosinophils % 5.4 Basophils % 0.8 Absolute Neutrophils 3.3 Absolute Lymphocytes 2.9 Absolute Monocytes 0.7 Absolute Eosinophils 0.4 Absolute Basophils 0.1 Sodium 141.7 Potassium 4.6 Chloride 108 H Carbon Dioxide 26 Anion Gap 8 BUN 16 Creatinine 1.08 Est GFR ( Amer) > 60 Est GFR (Non-Af Amer) 51 L Glucose 105 Calcium 8.9 C-Reactive Protein Assessment & Plan - Diagnosis (1) Abscess of right foot Is this a current diagnosis for this admission?: Yes Plan: A/ POD#1 after I&D right foot absccess x 2 CX pending On Zosyn PE shows still diffuse swelling of right foot dorsum and lateral malleolus, surgical incisions are clean P/ remove bandages and packing Apply triple abx ointment to right foot both surgical incision and webspace BID Discontinue Unasyn Continue Zosyn Abx therapy to be tailored once cx's are available Light weight bearing R foot; otherwise R foot elevation is recommended at all time to decrease the swelling
[2017-10-31] MEDS: HYDRALAZINE HCL 25 MG TABLET PO SCH ×2 (09:49→21:27)
[2017-10-31] MEDS: METOPROLOL TARTRATE 100 MG TABLET PO SCH ×2 (09:50→21:27)
[2017-10-31] MEDS: CITALOPRAM HYDROBROMIDE 20 MG TABLET PO SCH (09:50)
[2017-10-31] MEDS: VALSARTAN 160 MG TABLET PO SCH (09:51)
[2017-10-31] MEDS: AMLODIPINE BESYLATE 10 MG TABLET PO SCH (09:52)
[2017-10-31] MEDS ORDERED: (PENDING PHARMACY ID) (Citalopram Hydrobromide [Celexa 10 Mg Tablet] 10 MG) PO SCH (10:00)
[2017-10-31] MEDS ORDERED: (PENDING PHARMACY ID) (Valsartan [Diovan] 320 MG) PO SCH (10:00)
[2017-10-31] MEDS: MONTELUKAST SODIUM 10 MG TABLET PO SCH (17:30)
--- NOTE | 2017-10-31 21:37 | PDOC PROGRESS REPORT ---
Subjective Progress Note for:: 10/31/17 Subjective:: She was seen by the bedside, there is swelling of the right foot Reason For Visit: ABSCESS RIGHT FOOT,FAILED OUTPATIENT TREATMENT Physical Exam Vital Signs: Temp Pulse Resp BP Pulse Ox 97.9 F 63 16 126/79 H 98 10/31/17 20:11 10/31/17 20:11 10/31/17 20:11 10/31/17 20:11 10/31/17 20:11 Intake & Output 10/30/17 10/31/17 11/01/17 06:59 06:59 06:59 Intake Total 575 1732 Output Total 255 600 Balance 320 1132 Weight 75.75 kg General appearance: PRESENT: no acute distress Eye exam: PRESENT: PERRLA Respiratory exam: PRESENT: clear to auscultation theo Cardiovascular exam: PRESENT: +S1, +S2 GI/Abdominal exam: PRESENT: soft Neurological exam: PRESENT: alert Results Laboratory Results: 10/31/17 04:34 10/31/17 04:34 10/31/17 10/31/17 04:34 04:34 WBC 7.3 RBC 3.75 Hgb 11.2 L Hct 33.3 L MCV 89 MCH 29.9 MCHC 33.8 RDW 13.6 Plt Count 277 Seg Neutrophils % 44.8 Lymphocytes % 39.6 Monocytes % 9.4 Eosinophils % 5.4 Basophils % 0.8 Absolute Neutrophils 3.3 Absolute Lymphocytes 2.9 Absolute Monocytes 0.7 Absolute Eosinophils 0.4 Absolute Basophils 0.1 Sodium 141.7 Potassium 4.6 Chloride 108 H Carbon Dioxide 26 Anion Gap 8 BUN 16 Creatinine 1.08 Est GFR ( Amer) > 60 Est GFR (Non-Af Amer) 51 L Glucose 105 Calcium 8.9 Assessment & Plan - Diagnosis (1) Abscess of right foot Is this a current diagnosis for this admission?: Yes (2) Essential (primary) hypertension Is this a current diagnosis for this admission?: Yes
[2017-11-01] MEDS: CHLORPHENIRAMINE MALEATE 4 MG TABLET PO SCH ×4 (01:58→17:23)
[2017-11-01] MEDS: LEVOTHYROXINE SODIUM 0.05 MG TABLET PO SCH (05:32)
[2017-11-01] MEDS: PIPERACILLIN SODIUM/TAZOBACTAM 3.375 GM in NORMAL SALINE 100 ML IV SCH ×3 (05:32→21:46)
[2017-11-01] MEDS: OXYCODONE-ACETAMINOPHEN 5-325 MG TABLET PO PRN ×2 (05:32→21:45)
[2017-11-01] MEDS: ENOXAPARIN SODIUM INJ 40 MG/0.4 ML DISP.SYRIN SUBCUT SCH (05:32)
--- NOTE | 2017-11-01 09:41 | PDOC PROGRESS REPORT ---
Subjective Progress Note for:: 11/01/17 Subjective:: c/o right foot pain during dressing change Reason For Visit: ABSCESS RIGHT FOOT,FAILED OUTPATIENT TREATMENT Physical Exam Vital Signs: Temp Pulse Resp BP Pulse Ox 97.9 F 60 12 135/68 H 100 11/01/17 08:00 11/01/17 08:00 11/01/17 08:00 11/01/17 08:00 11/01/17 08:00 Intake & Output 10/31/17 11/01/17 11/02/17 06:59 06:59 06:59 Intake Total 575 2692 Output Total 255 600 Balance 320 2092 Weight 75.75 kg Extremities exam: PRESENT: other - right foot: persistent edema of dorsal forefoot and lateral malleolus, macerated skin of webspace 3-4 toe Results Laboratory Results: 10/31/17 04:34 10/31/17 04:34 Assessment & Plan - Diagnosis (1) Abscess of right foot Is this a current diagnosis for this admission?: Yes - Plan Summary Plan Summary: A/ POD#2 after I&D right foot, no nia abscess identified Still persistent swelling of right foot Cx pending, gram stain negative P/ D/w Radiologist front office assistant: plan CT scan Right foot with IV contrast r/o deep abscess today Continue Zosyn Continue dressing changes
[2017-11-01] MEDS: CITALOPRAM HYDROBROMIDE 20 MG TABLET PO SCH (10:20)
[2017-11-01] MEDS: VALSARTAN 160 MG TABLET PO SCH (10:21)
[2017-11-01] MEDS: METOPROLOL TARTRATE 100 MG TABLET PO SCH ×2 (10:22→21:45)
[2017-11-01] MEDS: AMLODIPINE BESYLATE 10 MG TABLET PO SCH (10:22)
[2017-11-01] MEDS: HYDRALAZINE HCL 25 MG TABLET PO SCH ×2 (10:23→21:45)
--- NOTE | 2017-11-01 12:05 | RADIOLOGY REPORT (SQ) ---
EXAM DESCRIPTION: CT RT LOWER EXTREMITY WITHOUT COMPLETED DATE/TIME: 11/01/2017 11:19 am REASON FOR STUDY: R foot swelling; limit to right foot only L02.611 CUTANEOUS ABSCESS OF RIGHT FOOT COMPARISON: None. TECHNIQUE: Axial imaging performed through the right foot with reformatted coronal and sagittal imag ing windowed for bone and soft tissues. Images saved to PACS. 3D IMAGING: Were 3D images as MIP, SSD, or volume rendering performed at the work station? No All CT scanners at this facility use dose modulation, iterative reconstruction, and/or weight based d osing when appropriate to reduce radiation dose to as low as reasonably achievable (ALARA). [facility]: Dose Right [facility]: CareDose [facility]: Dose Right [facility]: Teradose 4D [facility]: [employer] LIMITATIONS: None. RADIATION DOSE: CT Rad equipment meets quality standard of care and radiation dose reduction techniq ues were employed. CTDIvol: 4.1 mGy. DLP: 119 mGy-cm. mGy. FINDINGS: SOFT TISSUES: There is skin thickening and underlying edema noted about the dorsum of the forefoot. There is a possible small fluid collection just superficial to the extensor tendons. BONES: No acute fracture. No dislocation. MINERALIZATION: Normal. OTHER: No other significant finding. IMPRESSION: Skin thickening and edema noted about the dorsum of the foot, consistent with cellulitis . There is a small low attenuating area just superficial to the extensor tendons along the dorsum of the foot which may represent a small abscess. Consider CT with IV contrast if clinically feasible o r possibly MRI with IV contrast for further delineation. TECHNICAL DOCUMENTATION: JOB ID: [id number] Quality ID # [id number]: Final reports with documentation of one or more dose reduction techniques (e.g., Au tomated exposure control, adjustment of the mA and/or kV according to patient size, use of iterative reconstruction technique) 2010 [employer]- All Rights Reserved Reading location - IP/workstation name: [email or web address]
--- NOTE | 2017-11-01 12:55 | XCELERA REPORT ---
[address] [address] Lower Extremity Arterial Evaluation Name: GALILEO TENORIO Age: 67 yrs Gender: Female : 1950 Patient Status: Inpatient Patient Location: [address] [place], [place] [address] Study Date: 10/31/2017 08:42 AM Procedure: A color flow and duplex scan of the lower extremity arteries was performed bilaterally with velocity and waveform anaylsis. Reason For Study: Suspect PAD Ordering Physician: VINCENZO ELLIS Performed By: Gio Lemos Measurements and Calculations Right Left DATA ENTRY ASSOCIATE PSV 314.3 214.4 cm/sec Prox PFA PSV -107.6 88.6 cm/sec Prox SFA PSV 143.0 170.5 cm/sec Mid SFA PSV -113.8 -93.7 cm/sec Dist SFA PSV -171.1 -71.2 cm/sec Prox Pop A PSV 123.6 101.5 cm/sec Mid KEVIN PSV 136.4 96.3 cm/sec Mid TECHNICAL ENGINEER PSV 104.2 76.2 cm/sec Luis Eduardo Pedis PSV -48.5 cm/sec Right Side Arterial Evaluation Normal velocity and triphasic waveforms noted from the Common Femoral artery to the Posterior Tibial artery . Biphasic in the Anterior tibial artery. 0-19% stenosis at the Anterior tibial artery. Ankle Brachial index was not done due to bandaging. Left Side Arterial Evaluation Normal velocity and triphasic waveforms noted from the Common Femoral artery to the infrageniculate vessels. 0 % stenosis. Ankle Brachial index was not done. Interpretation Summary Mild hemodynamically significant lesions in the right lower extremity only, on duplex imaging, at rest. No hemodynamically significant lesions in the left lower extremity only, on duplex imaging, at rest. : VINCENZO ELLIS > Wu Traylor
[2017-11-01] MEDS: MONTELUKAST SODIUM 10 MG TABLET PO SCH (17:23)
--- NOTE | 2017-11-01 19:50 | PDOC PROGRESS REPORT ---
Subjective Progress Note for:: 11/01/17 Subjective:: She was seen by the bedside, CAT scan of the foot was done, it confirmed cellulitis Reason For Visit: ABSCESS RIGHT FOOT,FAILED OUTPATIENT TREATMENT Physical Exam Vital Signs: Temp Pulse Resp BP Pulse Ox 97.9 F 58 L 13 112/86 H 98 11/01/17 16:00 11/01/17 16:00 11/01/17 16:00 11/01/17 16:00 11/01/17 16:00 Intake & Output 10/31/17 11/01/17 11/02/17 06:59 06:59 06:59 Intake Total 575 2692 1247 Output Total 255 600 Balance 320 2092 1247 Weight 75.75 kg General appearance: PRESENT: no acute distress Eye exam: PRESENT: PERRLA Respiratory exam: PRESENT: clear to auscultation theo Cardiovascular exam: PRESENT: +S1, +S2 GI/Abdominal exam: PRESENT: soft Results Laboratory Results: 10/31/17 04:34 10/31/17 04:34 Impressions: Lower Extremity CT 11/01/17 00:00 IMPRESSION: Skin thickening and edema noted about the dorsum of the foot, consistent with cellulitis. There is a small low attenuating area just superficial to the extensor tendons along the dorsum of the foot which may represent a small abscess. Consider CT with IV contrast if clinically feasible or possibly MRI with IV contrast for further delineation. Assessment & Plan - Diagnosis (1) Abscess of right foot Is this a current diagnosis for this admission?: Yes Plan: Continue IV antibiotic (2) Essential (primary) hypertension Is this a current diagnosis for this admission?: Yes
[2017-11-02] MEDS: CHLORPHENIRAMINE MALEATE 4 MG TABLET PO SCH ×3 (00:57→11:52)
[2017-11-02] MEDS ORDERED: DEXTROSE 40% GEL 15 GM TUBE PO PRN ×2 (04:57)
[2017-11-02] MEDS ORDERED: DEXTROSE 50%-WATER 25 GM/50 ML DISP.SYRIN IV PRN ×2 (04:57)
[2017-11-02] MEDS ORDERED: GLUCAGON,HUMAN RECOMB 1 MG INJ SUBCUT PRN (04:57)
[2017-11-02] MEDS ORDERED: NORMAL SALINE 1000 ML 1,000 ML IV PRN (05:00)
[2017-11-02] MEDS: PIPERACILLIN SODIUM/TAZOBACTAM 3.375 GM in NORMAL SALINE 100 ML IV SCH ×2 (05:37→13:52)
[2017-11-02] MEDS: LEVOTHYROXINE SODIUM 0.05 MG TABLET PO SCH (05:37)
[2017-11-02] MEDS: OXYCODONE-ACETAMINOPHEN 5-325 MG TABLET PO PRN (06:29)
--- NOTE | 2017-11-02 06:43 | RADIOLOGY REPORT (SQ) ---
EXAM DESCRIPTION: CT RT LOWER EXTREMITY WITH CLINICAL HISTORY: 67 years Female, r/o abscess COMPARISON: November 01, 2017 TECHNIQUE: IV contrast. Coronal and sagittal reformat. This exam was performed according to our departmental dose-optimization program, which includes automated exposure control, adjustment of the mA and/or kV according to patient size and/or use of iterative reconstruction technique. FINDINGS: Moderate subcutaneous edema and effusion at the dorsum of the right foot. No significant abscess. No enhancement defect. Mild first metatarsophalangeal osteoarthritis. Mild osteoarthritis of the navicular-lateral cuneiform joint. No significant fracture or dislocation. No erosion. IMPRESSION: Moderate swelling-edema of the dorsal right foot. No evidence of abscess.
[2017-11-02] MEDS: AMLODIPINE BESYLATE 10 MG TABLET PO SCH (09:14)
[2017-11-02] MEDS: CITALOPRAM HYDROBROMIDE 20 MG TABLET PO SCH (09:14)
[2017-11-02] MEDS: VALSARTAN 160 MG TABLET PO SCH (09:14)
[2017-11-02] MEDS: HYDRALAZINE HCL 25 MG TABLET PO SCH (09:14)
[2017-11-02] MEDS: METOPROLOL TARTRATE 100 MG TABLET PO SCH (09:15)
--- NOTE | 2017-11-02 09:55 | PDOC PROGRESS REPORT ---
Subjective Progress Note for:: 11/02/17 Subjective:: Still c/o right foot pain Reason For Visit: ABSCESS RIGHT FOOT,FAILED OUTPATIENT TREATMENT Physical Exam Vital Signs: Temp Pulse Resp BP Pulse Ox 98.6 F 58 L 20 148/79 H 98 11/02/17 08:00 11/02/17 08:00 11/02/17 08:00 11/02/17 08:00 11/02/17 08:00 Intake & Output 11/01/17 11/02/17 11/03/17 06:59 06:59 06:59 Intake Total 2692 1807 Output Total 600 Balance 2092 1807 Extremities exam: PRESENT: other - Right foot: still edema of the lateral malleolus and dorsal forefoot; healing skin ulceration o the 3-4 toe webspace Results Laboratory Results: 10/31/17 04:34 10/31/17 04:34 Impressions: Lower Extremity CT 11/02/17 00:00 IMPRESSION: Moderate swelling-edema of the dorsal right foot. No evidence of abscess. Assessment & Plan - Diagnosis (1) Abscess of right foot Is this a current diagnosis for this admission?: Yes - Plan Summary Plan Summary: A/ POD #3 after I&D right foot two skin areas of redness and swelling (lateral malleolus) Intraoperative Cx are negative so far at 3 days Negative blood cx's Minimal improvement after tx with IV abx Arterial duplex shows good vascular supply of the right foot Right foot CT scan w/o and w/ IV contrast does not show any abscess or fluid collection At this point, I am not sure the patient suffers from an infectious process of her right foot P/ I will sign off. Patient can be discharged to home by my viewpoint. Ambulation with weight bearing as tolerated on the right foot should be allowed.
[2017-11-02] MEDS ORDERED: ENOXAPARIN SODIUM INJ 40 MG/0.4 ML DISP.SYRIN SUBCUT SCH (10:00)
[2017-11-02 11:32] VITALS: BP 153/82
--- NOTE | 2017-11-02 13:56 | PDOC DISCHARGE SUMMARY ---
General - Admit/Disc Date/PCP Admission Date/Primary Care Provider: 10/31/17 10:28 VINCENZO ELLIS MD Discharge Date: 11/02/17 - Discharge Diagnosis (1) Abscess of right foot Is this a current diagnosis for this admission?: Yes (2) Essential (primary) hypertension Is this a current diagnosis for this admission?: Yes (3) Abscess or cellulitis of foot Is this a current diagnosis for this admission?: Yes - Additional Information Resuscitation Status: Full Code Prescriptions: Diclofenac Sodium/Misoprostol [Arthrotec 75 mg-200 Mcg Tab] 1 each PO BID #20 tab.ir. Doxycycline Hyclate 100 mg PO BID #20 tablet. Morgan Medications: Amlodipine Besylate [Norvasc 10 mg Tablet] 10 mg PO DAILY 10/30/17 Chlorpheniramine Maleate [Chlor-Trimeton 4 mg Tablet] 4 mg PO Q6 10/30/17 Citalopram Hydrobromide [Celexa 10 mg Tablet] 10 mg PO DAILY 10/30/17 Hydralazine HCl [Apresoline 25 mg Tablet] 25 mg PO BID 10/30/17 Hydrochlorothiazide [Hydrodiuril 25 mg Tablet] 25 mg PO DAILY 10/30/17 Levothyroxine Sodium [Synthroid 0.05 mg Tablet] 50 mcg PO Q6AM 10/30/17 Metoprolol Tartrate [Lopressor 100 mg Tablet] 100 mg PO Q12 10/30/17 Montelukast Sodium [Singulair 10 mg Tablet] 10 mg PO QPM 10/30/17 Valsartan [Diovan] 320 mg PO DAILY 10/30/17 Diclofenac Sodium/Misoprostol [Arthrotec 75 mg-200 Mcg Tab] 1 each PO BID #20 tab.ir. 11/02/17 Doxycycline Hyclate 100 mg PO BID #20 tablet. 11/02/17 History of Present Illness History of Present Illness: GALILEO TENORIO is a 67 year old female, She came to the office this afternoon for evaluation of swelling, redness ,pussy discharge from the right foot, she was in the emergency room yesterday she was evaluated and she was diagnosed with cellulitis of the right foot, she was prescribed p.o. antibiotic. She came to the office today because she noticed progression of the swelling, in the office on evaluation the findings was consistent with abscess of the right foot, she was admitted directly from the office to the hospital for surgical debridement and incision and drainage of the abscess, she was seen by the surgeon , she was taken to the OR for I&D and debridement of the abscess Hospital Course Hospital Course: Patient was admitted for the management of cellulitis/abscess of right foot, she was seen in consultation by the surgeon she underwent incision and drainage , minimal abscess was tolerated, CT scan of the foot was done, consistent with cellulitis with minimal abscess, she was treated empirically with IV antibiotic including vancomycin and Zosyn. Cultures so far negative, ESR was elevated, CRP was elevated, suggestive of inflammation. Arterial Doppler was done to rule out ischemic food, arterial Dopplers showed mild lesion of the peripheral vessels not severe enough to cause ischemic process of the foot. Physical Exam Vital Signs: Temp Pulse Resp BP Pulse Ox 98.2 F 62 16 153/82 H 99 11/02/17 11:31 11/02/17 11:31 11/02/17 11:31 11/02/17 11:31 11/02/17 11:31 Intake & Output 11/01/17 11/02/17 11/03/17 06:59 06:59 06:59 Intake Total 2692 1807 Output Total 600 Balance 2092 1807 General appearance: PRESENT: no acute distress, well-developed, well-nourished Head exam: PRESENT: atraumatic, normocephalic Eye exam: PRESENT: conjunctiva pink, EOMI, PERRLA. ABSENT: scleral icterus Ear exam: PRESENT: normal external ear exam Mouth exam: PRESENT: moist, tongue midline Neck exam: PRESENT: full ROM Respiratory exam: PRESENT: clear to auscultation theo Cardiovascular exam: PRESENT: RRR, +S1, +S2 Pulses: PRESENT: normal dorsalis pedis pul, +2 pedal pulses bilateral Vascular exam: PRESENT: normal capillary refill GI/Abdominal exam: PRESENT: normal bowel sounds, soft Rectal exam: PRESENT: deferred Extremities exam: PRESENT: other - There is inflammation, swelling redness tenderness of the right foot Neurological exam: PRESENT: alert, awake, oriented to person, oriented to place , oriented to time, oriented to situation, CN II-XII grossly intact Psychiatric exam: PRESENT: appropriate affect, normal mood Skin exam: PRESENT: dry, intact, warm Results Laboratory Results: 10/31/17 04:34 10/31/17 04:34 Impressions: Lower Extremity CT 11/02/17 00:00 IMPRESSION: Moderate swelling-edema of the dorsal right foot. No evidence of abscess. Qualifiers - * PATEINT BEING DISCHARGED WITH ANY OF THE FOLLOWING DIAGNOSIS?: No
[2017-11-02] MEDS ORDERED: KETOROLAC TROMETHAMINE INJ/PF 30 MG/1 ML SDV IV ONE (15:30)
== END 2017-11-02 15:00 | disposition home or self-care (01) | DRG 603 ==
LOC: 4S 17:04 → OBSVTOIN 10-31 10:28
PROVIDERS: ADMIT Internal Medicine; ATTEND Internal Medicine
PROC: 0HDMXZZ Extraction of Right Foot Skin, External Approach (ICD-10-PCS; 2017-10-30)
PROC: 0H9MXZZ Drainage of Right Foot Skin, External Approach (ICD-10-PCS; principal; 2017-10-30 19:30)
DX: L03.115 Cellulitis of right lower limb (principal); L02.611 Cutaneous abscess of right foot; E78.5 Hyperlipidemia, unspecified; I10 Essential (primary) hypertension; E03.9 Hypothyroidism, unspecified; F17.200 Nicotine dependence, unspecified, uncomplicated; M19.90 Unspecified osteoarthritis, unspecified site; Z85.3 Personal history of malignant neoplasm of breast; Z90.49 Acquired absence of other specified parts of digestive tract; Z90.710 Acquired absence of both cervix and uterus; Z79.899 Other long term (current) drug therapy; Z88.6 Allergy status to analgesic agent
CPT/HCPCS: 00400; 36415; 80048; 80053; 82962; 85025; 85652; 86140; 87040; 87070; 87075; 87205; 93005; 93010; 93925; 93971; A6266; G0378; G0379; G8978-GP; G8979-GP; G8980-GP; J0295; J1650; J2250; J2543; J2704; J3010; J3370; J3490; J7030; J7060

== ENCOUNTER → 2018-01-09 | Outpatient (CLI) | payer MEDICARE ==
--- NOTE | 2018-01-12 12:51 | WOMENS IMAGING REPORT ---
EXAM DESCRIPTION: 3D SCREENING MAMMO BILAT COMPLETED DATE/TIME: 01/09/2018 7:47 am REASON FOR STUDY: SCREENING MAMMO F17.210 NICOTINE DEPENDENCE, CIGARETTES, UNCOMPLICATED Z12.31 EN CNTR SCREEN MAMMOGRAM FOR MALIGNANT NEOPLASM OF JOSE DANIEL COMPARISON: 12/24/2016 and 11/15/2013. TECHNIQUE: Standard craniocaudal and mediolateral oblique views of each breast recorded using digita l acquisition and breast tomosynthesis. LIMITATIONS: None. FINDINGS: No masses, calcifications or architectural distortion. No areas of suspicion. Read with the assistance of CAD. .[facility] - R2 [employer] Version 1.3 .[facility] - R2 Cenova Version 1.3 .[facility] - R2 Cenova Version 2.4 .[facility] - R2 Cenova Version 2.4 .[facility] - R2 [employer] Version 9.2 IMPRESSION: NORMAL MAMMOGRAM. BIRADS 1. BREAST DENSITY: b. There are scattered areas of fibroglandular density. BIRAD: 1 NEGATIVE RECOMMENDATION: ROUTINE SCREENING COMMENT: The patient has been notified of the results by letter per SA requirements. Additional no tification policies are in place for contacting patient with suspicious or incomplete findings. Quality ID #[id number]: The [employer] recommends an annual screening mammogram for women aged 40 years or over. This facility utilizes a reminder system to ensure that all patients receive reminder letters, and/or direct phone calls for appointments. This includes reminders for routine scr eening mammograms, diagnostic mammograms, or other Breast Imaging Interventions when appropriate. Th is patient will be placed in the appropriate reminder system. The [employer] (ACR) has developed recommendations for screening MRI of the breast s in certain patient populations, to be used in conjunction with mammography. Breast MRI surveillanc e may be appropriate for women with more than 20% lifetime risk of developing breast cancer as deter mined by genetic testing, significant family history of the disease, or history of mantle radiation f or Hodgkins Disease. ACR Practice Guidelines 2008. DBT Technology DBT is a type of tomographic mammography. With conventional mammography, overlapping breast tissue ma y make lesions difficult to detect, even with good compression. DBT uses an x-ray tube that rotates a round the breast, taking images at different angles. These images are then combined to create thin sl ices of the breast that the radiologist can view as a 3D reconstruction. The [employer] unit can perform full-field digital mammograms (2D imaging); or DBT (3D imaging); or both, in a combination mode that quickly performs both the mammogram and the tomosynthesis scan while the breast is still compressed. PQRS 6045F: Fluoroscopic imaging is not utilized for breast tomosynthesis. TECHNICAL DOCUMENTATION: FINDING NUMBER: (1) ASSESSMENT: (1) JOB ID: [id number] [employer] - Private Location App- All Rights Reserved Reading location - IP/workstation name: [email or web address]
== END ==
LOC: RAD 07:29
PROVIDERS: ATTEND Internal Medicine
DX: Z12.31 Encounter for screening mammogram for malignant neoplasm of breast (principal)
CPT/HCPCS: 77063; 77067

== ENCOUNTER → 2018-01-19 | Outpatient (CLI) | payer MEDICARE ==
--- NOTE | 2018-01-19 10:05 | RADIOLOGY REPORT (SQ) ---
EXAM DESCRIPTION: CT CHEST WITHOUT COMPLETED DATE/TIME: 01/19/2018 9:28 am REASON FOR STUDY: COUGH F17.210 NICOTINE DEPENDENCE, CIGARETTES, UNCOMPLICATED R05 COUGH COMPARISON: None. TECHNIQUE: CT scan performed of the chest without intravenous contrast. Images reviewed with lung, soft tissue and bone windows. Reconstructed coronal and sagittal MPR images reviewed. All images st ored on PACS. All CT scanners at this facility use dose modulation, iterative reconstruction, and/or weight based d osing when appropriate to reduce radiation dose to as low as reasonably achievable (ALARA). [facility]: Dose Right [facility]: CareDose [facility]: Dose Right [facility]: Teradose 4D [facility]: Smart [employer] RADIATION DOSE: CT Rad equipment meets quality standard of care and radiation dose reduction techniq ues were employed. CTDIvol: 6.1 mGy. DLP: 219 mGy-cm. mGy. LIMITATIONS: No technical limitations. FINDINGS: LUNGS AND PLEURA: Small subcentimeter pulmonary nodules with one of the largest measuring 4-5 mm. Slight scarring or atelectasis in the lower lobes. No acute pulmonary consolidation. No p neumothorax or pleural effusion. The central airways are clear. HILAR AND MEDIASTINAL STRUCTURES: Borderline to mildly prominent mediastinal lymph nodes. HEART AND VASCULAR STRUCTURES: The ascending thoracic aorta at the level of the main pulmonary arter y measures 3.9 cm in diameter and is mildly dilated. No pericardial effusion. UPPER ABDOMEN: Splenule, normal anatomic variant. Mild nonspecific thickening of the adrenal glands. Small hiatal hernia. Limited exam. THYROID AND OTHER SOFT TISSUES: The thyroid gland is heterogenous in appearance with hypoattenuated nodules and calcifications in the left lobe. BONES: No significant finding. HARDWARE: None in the chest. OTHER: No other significant findings. IMPRESSION: 1 Small subcentimeter pulmonary nodules. A follow-up one year examination is suggested unless otherwise clinically indicated. 2 Borderline to mildly prominent mediastinal lymph nodes. 3. Mild aneurysmal dilatation of the ascending thoracic aorta at the level of the main pulmonary art korin. 4 The thyroid gland is heterogenous in appearance with hypoattenuated nodules and calcifications pres ent. Correlation and thyroid ultrasound suggested. TECHNICAL DOCUMENTATION: JOB ID: [id number] Quality ID # [id number]: Final reports with documentation of one or more dose reduction techniques (e.g., Au tomated exposure control, adjustment of the mA and/or kV according to patient size, use of iterative reconstruction technique) 2010 [employer] [place]- All Rights Reserved Reading location - IP/workstation name: [email or web address]
== END ==
LOC: RAD 07:29
PROVIDERS: ATTEND Internal Medicine
DX: Z12.2 Encounter for screening for malignant neoplasm of respiratory organs (principal); F17.210 Nicotine dependence, cigarettes, uncomplicated; R91.8 Other nonspecific abnormal finding of lung field; R05 Cough
CPT/HCPCS: 71250

== ENCOUNTER 2018-03-06 21:02 | Emergency (ER) | payer MEDICARE ==
[2018-03-06] MEDS ORDERED: ACETAMINOPHEN 325 MG TABLET PO ONE (21:21)
[2018-03-06 22:10] LABS: ABSOLUTE LYMPHOCYTES (AUTO) 1.8 10^3/uL (0.5-4.7); ABSOLUTE MONOCYTES (AUTO) 1.2 10^3/uL (0.1-1.4); ABSOLUTE NEUT (AUTO) 8.2 10^3/uL (1.7-8.2); BASOPHILS % (AUTO) 0.4 % (0-2); HEMATOCRIT 38.6 % (36.0-47.0); HEMOGLOBIN 13.2 g/dL (12.0-15.5); LYMPHOCYTES % (AUTO) 15.6 % (13-45); MEAN CORPUSCULAR HEMOGLOBIN 30.2 pg (27.0-33.4); MEAN CORPUSCULAR HGB CONC 34.1 g/dL (32.0-36.0); MEAN CORPUSCULAR VOLUME 88 fl (80-97); MONOCYTES % (AUTO) 10.7 % (3-13); PLATELET COUNT 281 10^3/uL (150-450); RED BLOOD COUNT 4.37 10^6/uL (3.72-5.28); RED CELL DISTRIBUTION WIDTH 14.5 % (11.5-14.0); SEGMENTED NEUTROPHILS % (AUTO) 73.3 % (42-78); TOTAL CELLS COUNTED % (AUTO) 100 %; WHITE BLOOD COUNT 11.3 10^3/uL (4.0-10.5)
[2018-03-06 22:19] LABS: APPEARANCE,URINE SLIGHTLY-CLOUDY; BILIRUBIN,URINE NEGATIVE (NEGATIVE); COLOR,URINE YELLOW; GLUCOSE, URINE NEGATIVE (NEGATIVE); KETONES,URINE TRACE mg/dL (NEGATIVE); LEUKOCYTE ESTERASE,URINE NEGATIVE (NEGATIVE); NITRITE,URINE NEGATIVE (NEGATIVE); PROTEIN,URINE 30 mg/dL (NEGATIVE); URINE SPECIFIC GRAVITY 1.021; UROBILINOGEN,URINE NEGATIVE mg/dL (<2.0)
[2018-03-06 22:23] LABS: VENOUS BLOOD BASE EXCESS -2.8 mmol/L; VENOUS BLOOD HCO3 19.3 mmol/L (20-32); VENOUS BLOOD PCO2 27.1 mmHg (35-63); VENOUS BLOOD PH 7.47 (7.30-7.42)
--- NOTE | 2018-03-06 22:49 | RADIOLOGY REPORT (SQ) ---
EXAM DESCRIPTION: XR CHEST 2 VIEWS COMPLETED DATE/TME: 03/06/2018 21:22 CLINICAL HISTORY: 67 years Female, cough COMPARISON: None. FINDINGS: Increased lung volume, clear parenchyma, normal cardiac silhouette, atherosclerosis, right upper abdominal clips, and intact bony thorax. IMPRESSION: No acute cardiopulmonary findings.
[2018-03-06 22:54] LABS: ALANINE AMINOTRANSFERASE 14 U/L (9-52); ALBUMIN 4.1 g/dL (3.5-5.0); ALKALINE PHOSPHATASE 64 U/L (38-126); ANION GAP 14 (5-19); ASPARTATE AMINO TRANSFERASE 18 U/L (14-36); BILIRUBIN,DIRECT 0.3 mg/dL (0.0-0.4); BILIRUBIN,TOTAL 0.6 mg/dL (0.2-1.3); BLOOD UREA NITROGEN 20 mg/dL (7-20); CALCIUM 9.5 mg/dL (8.4-10.2); CARBON DIOXIDE 19 mmol/L (22-30); CHLORIDE 104 mmol/L (98-107); GLUCOSE 105 mg/dL (75-110); POTASSIUM 3.9 mmol/L (3.6-5.0); SODIUM 136.7 mmol/L (137-145); TOTAL PROTEIN 8.1 g/dL (6.3-8.2)
[2018-03-06] MEDS ORDERED: DOXYCYCLINE HYCLATE 100 MG TABLET PO ONE (23:05)
[2018-03-06 23:10] VITALS: BP 109/91
--- NOTE | 2018-03-06 23:12 | ER Document Report ---
ED General - General Chief Complaint: Shortness Of Breath Stated Complaint: FEVER Time Seen by Provider: 03/06/18 22:22 Notes: Patient is a 67-year-old female with a past medical history of tobacco dependence, hypertension, hyperlipidemia, who presents with 2 days of fever, cough with production of sputum, and body aches. She reports this feels similar to when she has had pneumonia in the past. Nothing seems to improve or worsen her symptoms. She does state that she has some mild shortness of breath but denies that it is severe. She has not seen her general doctor regarding today's concerns. No known sick contacts. TRAVEL OUTSIDE OF THE [place] IN LAST 30 DAYS: No - Related Data Allergies/Adverse Reactions: aspirin [Aspirin] Allergy (Intermediate, Verified 10/29/17 07:46) Rash codeine [Codeine] Adverse Reaction (Severe, Verified 10/29/17 07:46) Severe abdominal pain Past Medical History - General Information source: Patient - Social History Smoking Status: Current Every Day Smoker Chew tobacco use (# tins/day): No Frequency of alcohol use: None Drug Abuse: None Lives with: Spouse/Significant other Family History: Reviewed & Not Pertinent Patient has suicidal ideation: No Patient has homicidal ideation: No - Past Medical History Cardiac Medical History: Reports: Hx Hypercholesterolemia, Hx Hypertension Denies: Hx Atrial Fibrillation, Hx Congestive Heart Failure, Hx Coronary Artery Disease, Hx Heart Attack, Hx Peripheral Vascular Disease, Hx Pulmonary Embolism, Hx Heart Murmur Pulmonary Medical History: Reports: Hx Pneumonia - 2013 Denies: Hx Asthma, Hx Bronchitis, Hx COPD, Hx Respiratory Failure, Hx Sleep Apnea, Hx Tuberculosis Neurological Medical History: Reports: Hx Seizures - 2014. Denies: Hx Cerebrovascular Accident Endocrine Medical History: Reports: Hx Hypothyroidism. Denies: Hx Graves' Disease, Hx Hyperthyroidism Renal/ Medical History: Denies: Hx End Stage Renal Disease, Hx Kidney Stones, Hx Ovarian Cysts, Hx Peritoneal Dialysis, Hx Pelvic Inflammatory Disease Malignancy Medical History: Reports: Hx Breast Cancer - right- lumpectomy 1987. Denies: Hx Cervical Cancer, Hx Leukemia, Hx Lung Cancer, Hx Ovarian Cancer GI Medical History: Denies: Hx Crohn's Disease, Hx Gastroesophageal Reflux Disease, Hx Hiatal Hernia, Hx Irritable Bowel, Hx Liver Failure, Hx Pancreatitis , Hx Ulcer Musculoskeletal Medical History: Reports Hx Arthritis, Denies Hx Fibromyalgia, Denies Hx Multiple Sclerosis, Denies Hx Muscular Dystrophy Psychiatric Medical History: Reports: Hx Depression Denies: Hx Bipolar Disorder, Hx Dementia, Hx Post Traumatic Stress Disorder, Hx Schizophrenia Traumatic Medical History: Reports: Hx Fractures - left arm, left leg Infectious Medical History: Denies: Hx HIV Past Surgical History: Reports: Hx Cholecystectomy, Hx Hysterectomy, Hx Orthopedic Surgery - left leg, Hx Tubal Ligation. Denies: Hx Appendectomy, Hx Bowel Surgery, Hx Section, Hx Colostomy, Hx Coronary Artery Bypass Graft, Hx Gastric Bypass Surgery, Hx Herniorrhaphy, Hx Mastectomy, Hx Pacemaker , Hx Tonsillectomy - Immunizations Hx Diphtheria, Pertussis, Tetanus Vaccination: - Unknown Hx Pneumococcal Vaccination: 06/07/13 Review of Systems - Review of Systems Notes: Constitutional: Positive for fever. HENT: Negative for sore throat. Eyes: Negative for visual changes. Cardiovascular: Negative for chest pain. Respiratory: Positive for cough, sputum production and shortness of breath Gastrointestinal: Negative for abdominal pain, vomiting or diarrhea. Genitourinary: Negative for dysuria. Musculoskeletal: Negative for back pain. Skin: Negative for rash. Neurological: Negative for headaches, weakness or numbness. 10 point ROS negative except as marked above and in HPI. Physical Exam - Vital signs Vitals: Temp Pulse Resp BP Pulse Ox 101.2 F H 130 H 20 188/102 H 100 03/06/18 21:15 03/06/18 21:15 03/06/18 21:15 03/06/18 21:15 03/06/18 21:15 Interpretation: Tachycardic, Febrile Notes: PHYSICAL EXAMINATION: GENERAL: Well-appearing, well-nourished and in no acute distress. HEAD: Atraumatic, normocephalic. EYES: Pupils equal round and reactive to light, extraocular movements intact, sclera anicteric, conjunctiva are normal. ENT: nares patent, oropharynx clear without exudates. Moist mucous membranes. NECK: Normal range of motion, supple without lymphadenopathy LUNGS: Diminished breath sounds at the right base. No respiratory distress or tachypnea. No wheezes or rales. HEART: Regular rate and rhythm without murmurs ABDOMEN: Soft, nontender, normoactive bowel sounds. No guarding, no rebound. No masses appreciated. EXTREMITIES: Normal range of motion, no pitting or edema. No cyanosis. NEUROLOGICAL: No focal neurological deficits. Moves all extremities spontaneously and on command. PSYCH: Normal mood, normal affect. SKIN: Warm, Dry, normal turgor, no rashes or lesions noted. Course - Re-evaluation Re-evalutation: 03/06/18 23:07 Presentation of an overall well-appearing 67-year-old female with tobacco use complaints of 2 days of fever, cough, sputum production. Chest x-ray clear although her clinical history, borderline hypoxemia, recorded fever, and clinical history are most consistent with an acute pneumonia. She is diminished at the right base on multiple assessments consistent with a right lower lobe pneumonia. She will therefore be started on outpatient doxycycline for this condition. The patient is otherwise extremely well in appearance. CURB 65 score is 1 placing her in the low risk category and appropriate for outpatient management. Patient is agreeable to outpatient treatment and will plan to follow-up with her primary care doctor within the next 24 hours. At this time will discharge with return precautions and follow-up recommendations. Verbal discharge instructions given a the bedside and opportunity for questions given. Medication warnings reviewed. Patient is in agreement with this plan and has verbalized understanding of return precautions and the need for primary care follow-up in the next 24-72 hours. - Vital Signs Vital signs: Temp Pulse Resp BP Pulse Ox 101.2 F H 130 H 15 109/91 H 96 03/06/18 21:15 03/06/18 21:15 03/06/18 23:15 03/06/18 23:01 03/06/18 23:15 - Laboratory Result Diagrams: 03/06/18 21:40 03/06/18 22:05 Laboratory results interpreted by me: 03/06/18 03/06/18 03/06/18 21:40 21:40 22:05 WBC 11.3 H RDW 14.5 H VBG pH 7.47 H VBG pCO2 27.1 L VBG HCO3 19.3 L Sodium Carbon Dioxide Creatinine Est GFR ( Amer) Est GFR (Non-Af Amer) Urine Protein 30 H Urine Ketones TRACE H Urine Blood MODERATE H 03/06/18 22:05 WBC RDW VBG pH VBG pCO2 VBG HCO3 Sodium 136.7 L Carbon Dioxide 19 L Creatinine 1.45 H Est GFR ( Amer) 44 L Est GFR (Non-Af Amer) 36 L Urine Protein Urine Ketones Urine Blood - Diagnostic Test Radiology reviewed: Image reviewed, Reports reviewed Radiology results interpreted by me: 03/06/18 23:09 Chest x-ray: No acute infiltrate or pneumothorax Discharge - Discharge Clinical Impression: Cough Right lower lobe pneumonia Qualifiers: Pneumonia type: due to unspecified organism Qualified Code(s): J18.1 - Lobar pneumonia, unspecified organism Condition: Good Disposition: HOME, SELF-CARE Additional Instructions: You have been diagnosed with a pneumonia. It is very important that you take all of your antibiotics until they are gone even if you are feeling better. Please return to the emergency department immediately if you began having worsening shortness of breath, become confused, have worsening pain, pass out, have persistent vomiting that prevents you from being able to drink fluids for more than 12 hours, or have any other symptoms that are worrisome to you. Please follow-up with your primary care doctor in the next 1-2 days. Prescriptions: Doxycycline Hyclate 100 mg PO BID #14 capsule Referrals: VINCENZO ELLIS MD [Primary Care Provider] - Follow up tomorrow
--- NOTE | 2018-03-07 07:12 | EKG REPORT ---
SEVERITY:- ABNORMAL ECG - SINUS TACHYCARDIA PROBABLE LEFT ATRIAL ABNORMALITY PROBABLE LEFT VENTRICULAR HYPERTROPHY : Confirmed by: Sean France MD 07-Mar-2018 07:12:04
== END 2018-03-06 23:34 | disposition home or self-care (01) ==
LOC: ER 21:02
DX: J18.1 Lobar pneumonia, unspecified organism (principal); R05 Cough; R50.9 Fever, unspecified; R52 Pain, unspecified; I10 Essential (primary) hypertension; F17.200 Nicotine dependence, unspecified, uncomplicated; R06.02 Shortness of breath; Z85.3 Personal history of malignant neoplasm of breast; Z88.6 Allergy status to analgesic agent
CPT/HCPCS: 93005; 99285; 36415; 87040; 87086; 85025; 80053; 81001; 82803; 71046; 93010; A9270 ×2

== ENCOUNTER → 2018-03-12 | Day surgery (SDC) | payer MEDICARE ==
[~2018-03-12] MED LIST: BUPIVACAINE HCL 0.5 % INJ/PF 30 ML SDV ONE; LIDOCAINE 1% INJ (10 MG/ML) 10 ML MDV ONE
--- NOTE | 2018-03-12 12:17 | Operative Report ---
PROCEDURE: KNEE RADIOFREQUENCY Left under ultrasound guidance Preoperative Diagnosis: Left knee osteoarthritis Postoperative Diagnosis: left knee osteoarthritis 1. Superolateral genicular branch from the vastus lateralis 2. Superomedial genicular branch from the vastus medialis 3. Inferomedial genicular branch from the saphenous nerve 4. Medial retinacular branch from the vastus intermedius DATE OF PROCEDURE: 03/12/2018 ANESTHESIA: Local anesthesia COMPLICATIONS: None reported PROCEDURE IN DETAIL: Hx/PE/meds/allergies/applicable labs reviewed. No changes and no contraindications were found. Full description of the procedure was provided including benefits as well as possible complications including transient increased pain, stomach irritation, mood alteration, transient weakness or parasthesias as well as more serious nerve injury, bleeding, infection or allergic reaction. Informed consent was obtained and documented. The patient was brought to the procedure room and placed on the exam table in a comfortable supine position. The place for needle placement was obtained by manual palpation with ultrasound confirmation. The sterile field was prepared by chloroprep and sterile drapes. Local anesthesia superficial and deep was provided by local infiltration of 2% lidocaine. A 17g 50mm radiofrequency introducer needle with a 4 mm active tip was placed overlying the Left knee joint and using ultrasound guidance the needle was advanced to a bony endpoint on the superiolateral portion of the femoral condyle of the Left knee. A second needle was advanced to a bony endpoint on the superiomedial portion of the femoral condyle. A third needle was then placed over the inferiomedial portion of the tibial condyle until a bony endpoint was met. 4th needle placed 3mm above the patella with the tip in contact with the Medial retinacular branch from the vastus intermedius. Attempted aspiration yielded no blood. Transverse ultrasound views showed all the needles at 50% depth of the femur and tibia. Motor stimulation was tested at 2.0 volts with no leg movement. Images were saved in AP and lateral. A mixture consisting of 0.5% bupivacaine was slowly injected. Then a radiofrequency ablation of each of the geniculate nerves were done at 80 degrees Celsius for 2 minutes and 30 seconds each. The needles were withdrawn. The patient tolerated the procedure well. After observation the patient was discharged with instructions and follow up. They were also provided contact information to call regarding any concerning symptoms or questions. IMPRESSION: 1. Successful geniculate Left knee radiofrequency ablation was performed. 2. The patient was given prescription of home medicines. 3. RTC in 1-2 week(s).
== END ==
LOC: RAD 11:42
PROVIDERS: ATTEND Family Medicine
DX: M17.12 Unilateral primary osteoarthritis, left knee (principal)
CPT/HCPCS: 64640 ×4; J3490

== ENCOUNTER 2018-05-01 08:13 | Emergency (ER) | payer MEDICARE ==
--- NOTE | 2018-05-01 10:22 | ER Document Report ---
ED Extremity Problem, Lower - General Chief Complaint: Foot Pain Stated Complaint: FOOT PAIN Time Seen by Provider: 05/01/18 09:48 Information source: Patient Notes: 67-year-old female with past medical history as recorded including a left knee surgery in 2016 taking daily Levaquin status post infection of the knee for greater than 2 years as well as an episode in November of right foot swelling requiring operative and I and D drainage for possible abscess, who presents today stating some itching and some pain to the right foot for around 2 days. No fevers or vomiting. Patient denies a history of diabetes. She denies any trauma to the foot. TRAVEL OUTSIDE OF THE [place] IN LAST 30 DAYS: No - HPI Patient complains to provider of: Pain, Swelling Location: Foot - See above Occurred: Other - See above Where: Home Onset/Duration: Gradual Quality of pain: Other - See above Severity: Mild Pain Level: 1 Context: Other - See above Recent injury: No Associated symptoms: Other - See above Exacerbated by: Movement Relieved by: Nothing - Related Data Allergies/Adverse Reactions: aspirin [Aspirin] Allergy (Intermediate, Verified 05/01/18 08:14) Rash codeine [Codeine] Adverse Reaction (Severe, Verified 05/01/18 08:14) Severe abdominal pain Past Medical History - General Information source: Patient - Social History Smoking Status: Unknown if Ever Smoked Family History: Reviewed & Not Pertinent - Past Medical History Cardiac Medical History: Reports: Hx Hypercholesterolemia, Hx Hypertension Denies: Hx Atrial Fibrillation, Hx Congestive Heart Failure, Hx Coronary Artery Disease, Hx Heart Attack, Hx Peripheral Vascular Disease, Hx Pulmonary Embolism, Hx Heart Murmur Pulmonary Medical History: Reports: Hx Pneumonia - 2013 Denies: Hx Asthma, Hx Bronchitis, Hx COPD, Hx Respiratory Failure, Hx Sleep Apnea, Hx Tuberculosis Neurological Medical History: Reports: Hx Seizures - 2014. Denies: Hx Cerebrovascular Accident Endocrine Medical History: Reports: Hx Hypothyroidism. Denies: Hx Graves' Disease, Hx Hyperthyroidism Renal/ Medical History: Denies: Hx End Stage Renal Disease, Hx Kidney Stones, Hx Ovarian Cysts, Hx Peritoneal Dialysis, Hx Pelvic Inflammatory Disease Malignancy Medical History: Reports: Hx Breast Cancer - right- lumpectomy 1987. Denies: Hx Cervical Cancer, Hx Leukemia, Hx Lung Cancer, Hx Ovarian Cancer GI Medical History: Denies: Hx Crohn's Disease, Hx Gastroesophageal Reflux Disease, Hx Hiatal Hernia, Hx Irritable Bowel, Hx Liver Failure, Hx Pancreatitis , Hx Ulcer Musculoskeletal Medical History: Reports Hx Arthritis, Denies Hx Fibromyalgia, Denies Hx Multiple Sclerosis, Denies Hx Muscular Dystrophy Psychiatric Medical History: Reports: Hx Depression Denies: Hx Bipolar Disorder, Hx Dementia, Hx Post Traumatic Stress Disorder, Hx Schizophrenia Traumatic Medical History: Reports: Hx Fractures - left arm, left leg Infectious Medical History: Denies: Hx HIV Past Surgical History: Reports: Hx Cholecystectomy, Hx Hysterectomy, Hx Orthopedic Surgery - left leg, Hx Tubal Ligation. Denies: Hx Appendectomy, Hx Bowel Surgery, Hx Section, Hx Colostomy, Hx Coronary Artery Bypass Graft, Hx Gastric Bypass Surgery, Hx Herniorrhaphy, Hx Mastectomy, Hx Pacemaker , Hx Tonsillectomy - Immunizations Hx Diphtheria, Pertussis, Tetanus Vaccination: - Unknown Hx Pneumococcal Vaccination: 06/07/13 Review of Systems - Review of Systems Constitutional: denies: Fever Cardiovascular: denies: Chest pain Respiratory: denies: Short of breath Gastrointestinal: denies: Vomiting Musculoskeletal: denies: Leg swelling Skin: denies: Rash Neurological/Psychological: Other - no slurred speech -: Yes All other systems reviewed and negative Physical Exam - Vital signs Vitals: Temp Pulse Resp BP Pulse Ox 98.0 F 87 16 222/114 H 100 05/01/18 08:22 05/01/18 08:22 05/01/18 08:22 05/01/18 08:22 05/01/18 08:22 Notes: Reviewed vital signs and nursing note as charted by RN. CONSTITUTIONAL: Alert and oriented and responds appropriately to questions. Well -appearing; well-nourished HEAD: Normocephalic; atraumatic CARD: Regular rate and rhythm; no murmurs; symmetric distal pulses RESP: Normal chest excursion without splinting or tachypnea; breath sounds clear and equal bilaterally ABD/GI: Normal bowel sounds; non-distended; soft, non-tender BACK: The back appears normal and is non-tender to palpation EXT: Normal ROM in all joints; patient has a nonfluctuant nonerythematous blisterlike lesion to the dorsal aspect of the right foot between the third and fourth toes. I do not see any skin breakdown on a separate the toes. No plantar lesions or ecchymosis noted. Patient has strong pulses to the region, capillary refill, with sensation intact to light touch SKIN: Normal color for age and race; warm; dry; good turgor; capillary refill < 2 seconds; no acute lesions noted NEURO: Moves all extremities equally; Motor and sensory function intact PSYCH: The patient's mood and manner are appropriate. Grooming and personal hygiene are appropriate. Course - Re-evaluation Re-evalutation: 05/01/18 10:22 Given the history and physical, patient's recent complications, I will obtain an x-ray of the right foot as well as basic labs, CRP, and ESR. I will most likely contact the patient's primary care physician to discuss the case. Patient has excellent distal pulses, capillary refill, and movement. I do not believe acute arterial compromise is likely. 05/01/18 12:55 White blood cell count, ESR, C-reactive protein unremarkable. X-ray shows no foreign bodies or obvious osteomyelitis. I called and spoken directly to the primary care provider and explained the full history and physical examination. He is aware of the patient's current and past conditions. He is asked me to start the patient on clindamycin with strict return precautions and follow-up in his office. I have discussed the patient's blood pressure with her. She states she has not taken her blood pressure medications yesterday but does have them at home. She currently denies any headache, chest pain, lower extremity edema. She understands take these blood pressure medications, follow-up with the primary care physician on Friday, and return here immediately with any new or worrisome symptoms. - Vital Signs Vital signs: Temp Pulse Resp BP Pulse Ox 97.6 F 72 16 187/88 H 99 05/01/18 12:56 05/01/18 12:56 05/01/18 08:22 05/01/18 12:56 05/01/18 12:56 - Laboratory Result Diagrams: 05/01/18 11:06 05/01/18 11:06 Laboratory results interpreted by me: 05/01/18 05/01/18 11:06 11:06 RDW 16.2 H Seg Neutrophils % 37.7 L Lymphocytes % 46.0 H Est GFR (Non-Af Amer) 58 L Discharge - Discharge Clinical Impression: Blister (nonthermal), right foot, initial encounter Condition: Good Disposition: HOME, SELF-CARE Additional Instructions: Come back immediately with any increased foot blister, pain, vomiting, redness to the foot, or any other acute problems. Please take the antibiotics as prescribed and follow-up on Friday with your primary care physician that we have expedited for you. Please make sure that you take your blood pressure medications at home as directed. Prescriptions: Clindamycin HCl [Cleocin 300 mg Capsule] 300 mg PO QID 10 Days #40 capsule Referrals: VINCENZO ELLIS MD [Primary Care Provider] - Follow up as needed
--- NOTE | 2018-05-01 10:47 | RADIOLOGY REPORT (SQ) ---
EXAM DESCRIPTION: FOOT RIGHT COMPLETE COMPLETED DATE/TIME: 05/01/2018 10:29 am REASON FOR STUDY: 14, previous infection; blister to the top of foot blister between 3rd and 4th toe s dorsal foot COMPARISON: None. NUMBER OF VIEWS: Three views. TECHNIQUE: AP, lateral and oblique radiographic images acquired of the right foot. LIMITATIONS: None. FINDINGS: MINERALIZATION: Normal. BONES: No acute fracture or dislocation. No worrisome bone lesions. JOINTS: Hallux valgus deformity 1st metatarsophalangeal joint with mild bony spurring SOFT TISSUES: Diffuse 4th toe soft tissue swelling. There is a 2 cm soft tissue nodule along the anusha sum of the right foot between the 3rd and 4th toes. No radiopaque foreign body. OTHER: No other significant finding. IMPRESSION: Soft tissue swelling right 4th toe of the, soft tissue blister dorsal right foot between the 3rd and 4th toes. No underlying radiopaque foreign body, soft tissue gas, or aggressive bony de mineralization TECHNICAL DOCUMENTATION: JOB ID: [id number] [employer]- All Rights Reserved Reading location - IP/workstation name: [email or web address]
[2018-05-01 11:27] LABS: ABSOLUTE BASOPHILS # (AUTO) 0.1 10^3/uL (0.0-0.2); ABSOLUTE EOSINOPHILS # (AUTO) 0.2 10^3/uL (0.0-0.6); ABSOLUTE LYMPHOCYTES (AUTO) 2.7 10^3/uL (0.5-4.7); ABSOLUTE MONOCYTES (AUTO) 0.7 10^3/uL (0.1-1.4); ABSOLUTE NEUT (AUTO) 2.2 10^3/uL (1.7-8.2); BASOPHILS % (AUTO) 1.2 % (0-2); EOSINOPHILS % (AUTO) 4.1 % (0-6); HEMATOCRIT 40.5 % (36.0-47.0); HEMOGLOBIN 13.8 g/dL (12.0-15.5); MEAN CORPUSCULAR HEMOGLOBIN 30.5 pg (27.0-33.4); MEAN CORPUSCULAR VOLUME 90 fl (80-97); PLATELET COUNT 280 10^3/uL (150-450); RED BLOOD COUNT 4.52 10^6/uL (3.72-5.28); RED CELL DISTRIBUTION WIDTH 16.2 % (11.5-14.0); SEGMENTED NEUTROPHILS % (AUTO) 37.7 % (42-78); TOTAL CELLS COUNTED % (AUTO) 100 %; WHITE BLOOD COUNT 5.9 10^3/uL (4.0-10.5)
[2018-05-01 11:56] LABS: ANION GAP 8 (5-19); BLOOD UREA NITROGEN 13 mg/dL (7-20); C-REACTIVE PROTEIN 5.5 mg/L (<10.0); CALCIUM 9.7 mg/dL (8.4-10.2); CARBON DIOXIDE 26 mmol/L (22-30); CHLORIDE 106 mmol/L (98-107); GLUCOSE 93 mg/dL (75-110); POTASSIUM 4.2 mmol/L (3.6-5.0); SODIUM 140.4 mmol/L (137-145)
[2018-05-01 12:06] LABS: ERYTHROCYTE SEDIMENTATION RATE 24 mm/hr (0-30)
[2018-05-01] MEDS ORDERED: CLINDAMYCIN HCL 150 MG CAPSULE PO ONE (13:00)
[2018-05-01 13:34] VITALS: BP 232/126
== END 2018-05-01 13:29 | disposition home or self-care (01) ==
LOC: ER 08:13
DX: S90.821A Blister (nonthermal), right foot, initial encounter (principal); M79.671 Pain in right foot; X58.XXXA Exposure to other specified factors, initial encounter; M00.9 Pyogenic arthritis, unspecified; Z79.2 Long term (current) use of antibiotics; I10 Essential (primary) hypertension; Z88.6 Allergy status to analgesic agent; Z85.3 Personal history of malignant neoplasm of breast
CPT/HCPCS: 99284; 36415; 85025; 85652; 86140; 80048; 73630; A9270

== ENCOUNTER → 2018-05-13 | Outpatient (CLI) | payer MEDICARE ==
--- NOTE | 2018-05-14 08:43 | XCELERA REPORT ---
[address] [address] Lower Extremity Arterial Evaluation Name: NEMESIO TENORIO Age: 67 yrs Gender: Female : 1950 Patient Status: Outpatient Patient Location: RAD Study Date: 05/13/2018 08:27 AM Procedure: A color flow and duplex scan of the lower extremity arteries was performed bilaterally with velocity and waveform anaylsis. Reason For Study: PVD Ordering Physician: VINCENZO ELLIS Performed By: Nyla Blanchard Measurements and Calculations Right Left [employer] TE[employer]ER PSV 282.0 200.4 cm/sec Prox PFA PSV -69.2 -54.1 cm/sec Prox Pop A PSV 68.2 65.0 cm/sec Dist KEVIN PSV 71.6 69.5 cm/sec Dist GLASS CUTTER HAND PSV 58.1 62.9 cm/sec Luis Eduardo Pedis PSV -115.8 65.6 cm/sec Right Side Arterial Evaluation Normal velocity and triphasic waveforms noted from the Common Femoral artery to the infrageniculate vessels. 0 % stenosis at the Femoral artery. Ankle Brachial index is 1.00. Left Side Arterial Evaluation Normal velocity and triphasic waveforms noted from the Common Femoral artery to the infrageniculate vessels. 0 % stenosis at the Femoral artery. Ankle Brachial index is 1.00. Interpretation Summary No hemodynamically significant lesions in the bilateral lower extremities, on duplex imaging, at rest. BERENICE's are within normal limits, with normal associated waveforms. : VINCENZO ELLIS > Wu Traylor
== END ==
LOC: RAD 07:46
PROVIDERS: ATTEND Internal Medicine
DX: I73.9 Peripheral vascular disease, unspecified (principal)
CPT/HCPCS: 93925

== ENCOUNTER → 2019-01-11 | Outpatient (CLI) | payer MEDICARE ==
--- NOTE | 2019-01-11 11:31 | WOMENS IMAGING REPORT ---
EXAM DESCRIPTION: 3D SCREENING MAMMO BILAT COMPLETED DATE/TIME: 01/11/2019 11:13 am REASON FOR STUDY: Z12.31 ENCOUNTER FOR SCREENING MAMMOGRAM FOR MALIGNANT NEOPLASM OF BREAST Z12.31 ENCNTR SCREEN MAMMOGRAM FOR MALIGNANT NEOPLASM OF JOSE DANIEL COMPARISON: None. EXAM PARAMETERS: Views: Standard craniocaudal and mediolateral oblique views of each breast recorded using digital acquisition and breast tomosynthesis. Read with the assistance of CAD. .[facility] - [employer]uler Version 9.2 LIMITATIONS: None. FINDINGS: No suspicious masses, suspicious calcifications or architectural distortion. No areas of c oncern. IMPRESSION: NEGATIVE MAMMOGRAM. BIRADS 1. BREAST DENSITY: b. There are scattered areas of fibroglandular density. BIRAD: ASSESSMENT: 1 NEGATIVE RECOMMENDATION: ROUTINE SCREENING COMMENT: The patient has been notified of the results by letter per MQSA requirements. Additional no tification policies are in place for contacting patient with suspicious or incomplete findings. Quality ID #[id number]: The [employer] recommends an annual screening mammogram for women aged 40 years or over. This facility utilizes a reminder system to ensure that all patients receive reminder letters, and/or direct phone calls for appointments. This includes reminders for routine scr eening mammograms, diagnostic mammograms, or other Breast Imaging Interventions when appropriate. Th is patient will be placed in the appropriate reminder system. TECHNICAL DOCUMENTATION: FINDING NUMBER: (1) ASSESSMENT: (1) JOB ID: [id number] [employer]- All Rights Reserved Reading location - IP/workstation name: [email or web address]
== END ==
LOC: WI 10:32
PROVIDERS: ATTEND Internal Medicine
DX: Z12.31 Encounter for screening mammogram for malignant neoplasm of breast (principal)
CPT/HCPCS: 77063; 77067

== ENCOUNTER → 2019-07-05 | Outpatient (CLI) | payer MEDICARE ==
[2019-07-05 10:02] LABS: ABSOLUTE BASOPHILS # (AUTO) 0.1 10^3/uL (0.0-0.2); ABSOLUTE EOSINOPHILS # (AUTO) 0.1 10^3/uL (0.0-0.6); ABSOLUTE LYMPHOCYTES (AUTO) 3.3 10^3/uL (0.5-4.7); ABSOLUTE MONOCYTES (AUTO) 0.8 10^3/uL (0.1-1.4); ABSOLUTE NEUT (AUTO) 4.2 10^3/uL (1.7-8.2); BASOPHILS % (AUTO) 0.7 % (0-2); EOSINOPHILS % (AUTO) 1.1 % (0-6); HEMOGLOBIN 12.3 g/dL (12.0-15.5); LYMPHOCYTES % (AUTO) 38.9 % (13-45); MEAN CORPUSCULAR HEMOGLOBIN 30.7 pg (27.0-33.4); MEAN CORPUSCULAR HGB CONC 34.1 g/dL (32.0-36.0); MEAN CORPUSCULAR VOLUME 90 fl (80-97); MONOCYTES % (AUTO) 9.3 % (3-13); PLATELET COUNT 353 10^3/uL (150-450); RED CELL DISTRIBUTION WIDTH 13.8 % (11.5-14.0); TOTAL CELLS COUNTED % (AUTO) 100 %; WHITE BLOOD COUNT 8.4 10^3/uL (4.0-10.5)
[2019-07-05 10:43] LABS: ANION GAP 11 (5-19); BLOOD UREA NITROGEN 16 mg/dL (7-20); C-REACTIVE PROTEIN 38.6 mg/L (<10.0); CALCIUM 9.8 mg/dL (8.4-10.2); CARBON DIOXIDE 26 mmol/L (22-30); CHLORIDE 102 mmol/L (98-107); GLUCOSE 118 mg/dL (75-110)
[2019-07-05 10:51] LABS: ERYTHROCYTE SEDIMENTATION RATE 70 mm/hr (0-30)
== END ==
LOC: OD 09:05
PROVIDERS: ATTEND Orthopaedic Surgery
DX: M25.562 Pain in left knee (principal)
CPT/HCPCS: 36415; 80048; 85025; 85652; 86140